=== PATIENT | male | born 1960 | race Caucasian/White ===

== ENCOUNTER 2021-12-08 17:34 | Inpatient (IN) ==
--- NOTE | 2021-12-08 17:39 | ED Triage Note ---
Date of Service December 08, 2021 History of Present Illness This patient was briefly evaluated while in triage. An abbreviated physical exam was performed. This patient is a 61-year-old Male with past medical history of heart disease who presents to the ED for evaluation of "gallbladder". Pt's family member states "I think he's having an attack." He reportedly had CT and US completed yesterday at [facility] and has gallstones and gallbladder inflammation. Having dry heaves. Physical Exam VITALS: Vitals are noted on the nurse's note and reviewed by myself. GENERAL: This is a 61 year old male, in no acute distress, nondiaphoretic, well-developed well-nourished. SKIN: No obvious rashes, edema, erythema HEAD: Normocephalic atraumatic. EYES: Conjunctivae without injection, sclerae without icterus. NECK: No JVD. LUNGS: No retractions or accessory muscle use. MUSCULOSKELETAL: Normal gait. NEURO: Patient was alert and oriented to person place and time. No focal neurological deficits. Initial orders for labs and / or imaging were placed and patient was placed in the waiting area until a bed is available. Please see further documentation for the full ED course. MDM / Impression Impression Impression: Upper abdominal pain, Total bilirubin, elevated, Elevated troponin I level, Chest pain, History of coronary artery disease, History of heart failure, History of atrial fibrillation, Hyponatremia
[2021-12-08 19:33] LABS: Hematocrit (blood only) 42.4 % (40.1-51.0); Hemoglobin 14.5 g/dl (14.0-18.0); Mean Corpuscular Hemoglobin 31.8 pg (25.0-34.0); Mean Corpuscular Hgb Conc 34.2 g/dL (32.0-36.0); RDW Standard Deviation 44.5 fL (36.4-46.3); Red Blood Count 4.56 M/uL (4.63-6.08); White Blood Count 7.75 K/ul (4.8-10.8)
[2021-12-08 19:47] LABS: Basophils # (auto) 0.08 K/uL (0-0.2); Eosinophils # (auto) 0.05 K/uL (0-0.50); Eosinophils % (auto) 0.6 %; Immature Granulocytes # (auto) 0.02 K/uL (0.00-0.02); Immature Granulocytes % (auto) 0.3 %; Lymphocytes # (auto) 1.29 K/uL (1.2-3.4); Lymphocytes % (auto) 16.6 %; Mean Platelet Volume 13.1 fL (9.4-12.4); Monocytes # (auto) 0.59 K/uL (0.24-0.82); Monocytes % (auto) 7.6 %; Neutrophils # (auto) 5.72 K/uL (1.4-6.5); Neutrophils % (auto) 73.9 %; Platelet Count 216 K/uL (130-400)
[2021-12-08] MEDS ORDERED: fentaNYL citrate 100 MCG/2 ML VIAL IV STA ×2 (19:56→21:35)
[2021-12-08] MEDS ORDERED: ONDANSETRON INJ 2 MG/ML 2 ML VIAL IV STA ×2 (19:56→21:35)
--- NOTE | 2021-12-08 19:57 | Emergency Department Note ---
Impression & Plan Upper abdominal pain, Total bilirubin, elevated, Elevated troponin I level, Chest pain, History of coronary artery disease, History of heart failure, History of atrial fibrillation, Hyponatremia ED Provider Note Provider: Mehul Ruffin MD DATE OF SERVICE: 12/08/2021 CHIEF COMPLAINT: Abdominal pain, chest pressure HISTORY OF PRESENT ILLNESS: Patient is a 61-year-old gentleman history of atrial fibrillation, CHF, AICD placement, hepatitis C, and CABG presenting here today reporting over the past 3 to 4 weeks developing fairly regular upper to right upper back abdominal discomfort. Reports significant nausea at times. Some constipation. Has been losing weight. Seen at [facility] yesterday and had an ultrasound and CAT scan reportedly showed some gallstones and may be some inflammation but referred to outpatient PCP. Worsened pain symptoms so came here today. Has been using Eliquis for anticoagulation. Denies significant leg swelling. No history of abdominal surgeries. REVIEW OF SYSTEMS: A total of 10 review of systems was obtained and negative except as stated above in the HPI. PAST MEDICAL HISTORY: As noted above MEDICATIONS: Reviewed home medications include Lasix and Eliquis (last dose of Eliquis this morning) SOCIAL HISTORY: Works at the [employer] in [place] PHYSICAL EXAM: GENERAL: alert and oriented seated on stretcher Head: normocephalic and atraumatic EYES: No injection, discharge or icterus. NECK: Trachea midline. ENT: Mucous membranes pink and moist. LUNGS: Airway patent. No retractions. Breath sounds clear with good air entry bilaterally. HEART: Irregular, mildly tachycardic rate and rhythm. No chest wall tenderness ABDOMEN: Soft minimal upper abdominal tenderness. No guarding. SKIN: Acyanotic, warm, dry, without rashes EXTREMITIES: Without swelling or tenderness with [id number] surgical scars. NEUROLOGICAL: No focal deficits. No aphasia. No facial droop or slurred speech. Ambulatory. EK bpm sinus rhythm with frequent PVCs and a left bundle branch block. Left axis. QTC 549. CONTINUOUS CARDIAC MONITORING: was ordered and showed a heart rate of 90s-100s bpm in normal sinus rhythm with frequent PVCs Patient's laboratory studies and imaging reviewed. Differential includes Appendicitis, infections, diverticulitis, UTI, obstruction, mesenteric ischemia, aortic pathology, inflammatory bowel disease, renal colic, PUD, pancreatitis, biliary pathology, hernia, volvulus, constipation, as well as other pathologies. IMPRESSION/MEDICAL DECISION MAKING: Patient with some intermittent significant symptoms over the past 3 to 4 weeks. Patient some imaging yesterday at [facility]. Significant cardiac history reported. Troponin somewhat elevated here and reportedly he may have some chronic elevation. Reports some intermittent chest pressure. EKG obtained. Blood work without significant leukocytosis. No anemia. Mild hyponatremia. Creatinine 1.82 as well as an elevated bilirubin of 2.4 noted. Attempted to get outside labs from [facility]. Did have a CT scan of the abdomen pelvis yesterday and do not know that additional CT today would be beneficial. Given some Zofran and fentanyl here for pain and nausea complaints initially. Some improvement of pain. Discussed with general surgery team findings and they will follow him in the morning. Given some gentle IV hydration here but 1 to be careful avoid fluid overload given his heart failure history. Discussed further observation here given his abdominal discomfort and symptoms as well as his elevated troponin for further work-up. Did finally receive outside records indicate the patient had a CT of his chest as well as a CT abdomen pelvis yesterday at [facility] and by the reports no PE but question of pulmonary hypertension as well as gallbladder wall thickening and mild pericholecystic fluid. Patient signed out AMA from there. Blood work there yesterday reports a D-dimer 1000, BNP of 1970, troponin 54, creatinine 1.7, white blood cell count of 8.0, troponin of 54, lipase of 128, sodium of 133, and total bilirubin of 1.6. His bilirubin of 2.4 is higher today although his creatinine appears similar and the high sensitive troponin is somewhat elevated today but unsure if they correspond or correlate well with the outside lab. DIAGNOSIS: Abdominal pain, nausea, elevated troponin, chest pain, hyponatremia, hypomag nesemia DISPOSITION: Hospitalist will evaluate Patient was agreeable with this plan and was agreeable to stay at this time. Past Med/Surg History Social History Smoking Status: Former smoker Feels Safe at Home: Yes Allergies Allergies Allergy/AdvReac Type Severity Reaction Status Date / Time codeine Allergy Severe chest Verified 12/08/21 22:08 pain,cold sweats Home Meds Home Medications Medication Instructions Recorded Confirmed apixaban 5 mg tablet (Eliquis) 5 mg PO DAILY 12/08/21 12/08/21 furosemide 40 mg tablet 80 mg PO QPM 12/08/21 12/08/21 isosorbide mononitrate 60 mg 60 mg PO QAM 12/08/21 12/08/21 tablet,extended release 24 hr metoprolol succinate 200 mg 200 mg PO DAILY 12/08/21 12/08/21 tablet,extended release 24 hr sacubitril 49 mg-valsartan 51 mg 1 tab PO DAILY 12/08/21 12/08/21 tablet (Entresto) spironolactone 25 mg tablet 25 mg PO DAILY 12/08/21 12/08/21 Results & Data (ED) Vital Signs Vital Signs - 24 hr 12/08/21 17:38 12/08/21 21:00 12/08/21 21:10 Temperature 36.2 C L Temperature Source Temporal Artery Scan Pulse Rate 110 H 98 H 96 H Pulse Rate from SpO2 Sensor 101 H 93 H Pulse Rhythm Respiratory Rate 16 36 H 23 Respiratory Effort / Characteristics Non-Labored Spontaneous Respiratory Depth Normal Respiratory Pattern Regular Blood Pressure 127/83 Blood Pressure Mean 97 Pulse Oximetry 96 96 96 Oxygen Delivery Method Room Air Sepsis Recent Fever Within 48 Hours No Sepsis New/Unexplained Change in Mental Status N/A Sepsis Action Taken by Nursing No Action Required 12/08/21 21:20 12/08/21 21:24 12/08/21 21:24 Temperature Temperature Source Pulse Rate 97 H 94 H Pulse Rate from SpO2 Sensor 98 H 116 H Pulse Rhythm Respiratory Rate 23 29 H Respiratory Effort / Characteristics Respiratory Depth Respiratory Pattern Blood Pressure 120/83 Blood Pressure Mean 95 Pulse Oximetry 98 96 Oxygen Delivery Method Sepsis Recent Fever Within 48 Hours Sepsis New/Unexplained Change in Mental Status Sepsis Action Taken by Nursing 12/08/21 21:35 12/08/21 21:35 12/08/21 21:30 Temperature Temperature Source Pulse Rate 87 Pulse Rate from SpO2 Sensor Pulse Rhythm Regular Respiratory Rate 16 Respiratory Effort / Characteristics Respiratory Depth Respiratory Pattern Blood Pressure 120/92 Blood Pressure Mean 101 Pulse Oximetry 93 Oxygen Delivery Method Room Air Room Air Sepsis Recent Fever Within 48 Hours Sepsis New/Unexplained Change in Mental Status Sepsis Action Taken by Nursing 12/08/21 21:30 12/08/21 21:40 12/08/21 21:50 Temperature Temperature Source Pulse Rate 99 H 98 H 97 H Pulse Rate from SpO2 Sensor 89 105 H 98 H Pulse Rhythm Respiratory Rate 38 H 32 H 23 Respiratory Effort / Characteristics Respiratory Depth Respiratory Pattern Blood Pressure Blood Pressure Mean Pulse Oximetry 97 97 98 Oxygen Delivery Method Sepsis Recent Fever Within 48 Hours Sepsis New/Unexplained Change in Mental Status Sepsis Action Taken by Nursing 12/08/21 22:00 12/08/21 22:00 12/08/21 22:10 Temperature Temperature Source Pulse Rate 96 H 92 H Pulse Rate from SpO2 Sensor 95 H 92 H Pulse Rhythm Respiratory Rate 36 H 22 Respiratory Effort / Characteristics Respiratory Depth Respiratory Pattern Blood Pressure 123/92 Blood Pressure Mean 102 Pulse Oximetry 95 94 Oxygen Delivery Method Sepsis Recent Fever Within 48 Hours Sepsis New/Unexplained Change in Mental Status Sepsis Action Taken by Nursing 12/08/21 22:20 Temperature Temperature Source Pulse Rate 89 Pulse Rate from SpO2 Sensor 88 Pulse Rhythm Respiratory Rate 21 Respiratory Effort / Characteristics Respiratory Depth Respiratory Pattern Blood Pressure Blood Pressure Mean Pulse Oximetry 94 Oxygen Delivery Method Sepsis Recent Fever Within 48 Hours Sepsis New/Unexplained Change in Mental Status Sepsis Action Taken by Nursing Laboratory Data Result diagrams: 12/08/21 19:15 12/08/21 19:15 Lab Results 12/08/21 12/08/21 12/08/21 Range/Units 19:15 19:15 19:15 WBC 7.75 (4.8-10.8) K/ul RBC 4.56 L (4.63-6.08) M/uL Hgb 14.5 (14.0-18.0) g/dl Hct 42.4 (40.1-51.0) % MCV 93.0 (80.0-100.0) fL MCH 31.8 (25.0-34.0) pg MCHC 34.2 (32.0-36.0) g/dL RDW Std Deviation 44.5 (36.4-46.3) fL RDW Coeff of Ijeoma 13.0 (11.5-14.5) % Plt Count 216 (130-400) K/uL MPV 13.1 H (9.4-12.4) fL Immature Gran % (Auto) 0.3 % Neut % (Auto) 73.9 % Lymph % (Auto) 16.6 % Teller % (Auto) 7.6 % Eos % (Auto) 0.6 % Baso % (Auto) 1.0 % Neut # (Auto) 5.72 (1.4-6.5) K/uL Lymph # (Auto) 1.29 (1.2-3.4) K/uL Teller # (Auto) 0.59 (0.24-0.82) K/uL Eos # (Auto) 0.05 (0-0.50) K/uL Baso # (Auto) 0.08 (0-0.2) K/uL Immature Gran # (Auto) 0.02 (0.00-0.02) K/uL PT Cancelled INR Cancelled Sodium 131 L (136-145) mmol/L Potassium TNP Chloride 91 L (98-107) mmol/L Carbon Dioxide 24 (21-32) mmol/L Anion Gap 16 H (3-11) BUN 22 (6-23) mg/dl Creatinine 1.82 H (0.6-1.4) mg/dl Est Cr Clr Drug Dosing Not Reportable Est GFR ( Amer) 44.8 ml/min Est GFR (Non-Af Amer) 38.7 ml/min BUN/Creatinine Ratio 12.1 (10-20) Glucose 115 H (70-99(Fasting)) mg/dl Calcium 9.7 (8.5-10.1) mg/dl Magnesium (1.7-2.4) mg/dl Total Bilirubin 2.4 H (0.2-1.0) mg/dl AST TNP ALT 25 (7-52) U/L Alkaline Phosphatase 82 (34-104) U/L Troponin I High Sens 62.1 H* (0-20) pg/ml Total Protein 7.8 (6.0-8.3) gm/dl Albumin 4.3 (3.4-5.0) gm/dl Globulin 3.5 (2.5-4.0) gm/dl Albumin/Globulin Ratio 1.2 (0.9-2) Lipase 28 (11-82) U/L 12/08/21 12/08/21 Range/Units 20:56 20:56 WBC (4.8-10.8) K/ul RBC (4.63-6.08) M/uL Hgb (14.0-18.0) g/dl Hct (40.1-51.0) % MCV (80.0-100.0) fL MCH (25.0-34.0) pg MCHC (32.0-36.0) g/dL RDW Std Deviation (36.4-46.3) fL RDW Coeff of Ijeoma (11.5-14.5) % Plt Count (130-400) K/uL MPV (9.4-12.4) fL Immature Gran % (Auto) % Neut % (Auto) % Lymph % (Auto) % Teller % (Auto) % Eos % (Auto) % Baso % (Auto) % Neut # (Auto) (1.4-6.5) K/uL Lymph # (Auto) (1.2-3.4) K/uL Teller # (Auto) (0.24-0.82) K/uL Eos # (Auto) (0-0.50) K/uL Baso # (Auto) (0-0.2) K/uL Immature Gran # (Auto) (0.00-0.02) K/uL PT 14.5 H INR 1.4 H Sodium (136-145) mmol/L Potassium Chloride (98-107) mmol/L Carbon Dioxide (21-32) mmol/L Anion Gap (3-11) BUN (6-23) mg/dl Creatinine (0.6-1.4) mg/dl Est Cr Clr Drug Dosing Est GFR ( Amer) ml/min Est GFR (Non-Af Amer) ml/min BUN/Creatinine Ratio (10-20) Glucose (70-99(Fasting)) mg/dl Calcium (8.5-10.1) mg/dl Magnesium 1.5 L (1.7-2.4) mg/dl Total Bilirubin (0.2-1.0) mg/dl AST ALT (7-52) U/L Alkaline Phosphatase (34-104) U/L Troponin I High Sens (0-20) pg/ml Total Protein (6.0-8.3) gm/dl Albumin (3.4-5.0) gm/dl Globulin (2.5-4.0) gm/dl Albumin/Globulin Ratio (0.9-2) Lipase (11-82) U/L Administered Medications Magnesium Sulfate/Dextrose (Magnesium Sulfate / D5w) 1 gm in 100 mls @ 200 mls/hr IV Q30M JOSHUA Stop: 12/08/21 23:14 Last Admin: 12/08/21 22:31 Dose: 200 mls/hr Documented By: YAW Discontinued Medications Fentanyl Citrate (Fentanyl Citrate 100 Mcg/2 Ml Vial) 50 mcg IV NOW STA Stop: 12/08/21 19:57 Last Admin: 12/08/21 20:49 Dose: 50 mcg Documented By: YAW Fentanyl Citrate (Fentanyl Citrate 100 Mcg/2 Ml Vial) 50 mcg IV NOW STA Stop: 12/08/21 21:36 Last Admin: 12/08/21 21:54 Dose: 50 mcg Documented By: YAW Sodium Chloride (Nss 1000ml) 250 mls @ 999 mls/hr IV .Q16M ONE Stop: 12/08/21 21:50 Last Infusion: 12/08/21 22:18 Dose: 0 mls/hr Documented By: Admin: 12/08/21 21:55 Dose: 999 mls/hr Documented By: YAW Ondansetron HCl (Ondansetron Inj 2 Mg/Ml 2 Ml Vial) 4 mg IV NOW STA Stop: 12/08/21 19:57 Last Admin: 12/08/21 20:44 Dose: 4 mg Documented By: YAW Ondansetron HCl (Ondansetron Inj 2 Mg/Ml 2 Ml Vial) 4 mg IV NOW STA Stop: 12/08/21 21:36 Last Admin: 12/08/21 21:54 Dose: 4 mg Documented By: YAW Imaging Data Radiologist's Impression: Gallbladder Ultrasound 12/08/21 17:39 US gallbladder CLINICAL HISTORY: Abdominal pain, dry heaves,gallstones, GB inflamed TECHNIQUE: Multiple real-time sonographic images of the right upper quadrant were obtained. Comparison: None available at the time of this dictation. FINDINGS: The liver is diffusely coarsened in echotexture, with a nodular contour. The liver appears shrunken in appearance. These findings are suggestive of cirrhosis. The liver masses definitely seen. The main portal vein is hepatopedal but demonstrate slow flow. No intrahepatic ductal dilatation is seen. Gallstones are seen and there is mild wall thickening, the gallbladder wall measures approximately 4 mm. No pericholecystic fluid is seen. A sonographic Harris's sign was not elicited by the dye box operator. The common duct measures 0.3 cm in diameter at the level of the hepatic artery. The pancreas is not well visualized secondary to overlying bowel gas. The right kidney shows normal echogenicity, cortical thickness and renal contour. The right kidney shows no evidence of hydronephrosis or mass. No ascites or free fluid is seen in Vazquez's pouch. IMPRESSION: 1. Gallstones and mild gallbladder wall thickening without pericholecystic fluid or Harris's sign. Findings are equivocal for cholecystitis. If there is clinical concern, nuclear medicine HIDA scan can be performed. 2. Cirrhosis. ACT 112: Negative or not required by law. Electronically signed by: Gregg Wilson M.D. 12/08/2021 9:00 PM Discharge Plan Visit Data Chief Complaint: Abdominal Pain Stated Complaint: GALLBLADDER ATTACK, DRY HEAVING, NAUSEATED ED Provider: Mehul Ruffin Discharge Problem: Upper abdominal pain, Total bilirubin, elevated, Elevated troponin I level, Chest pain, History of coronary artery disease, History of heart failure, History of atrial fibrillation, Hyponatremia Patient Disposition: Being Evaluated by Hospitalist Forms Stand Alone Forms: My [facility] Prescriptions Prescriptions: No Action furosemide 40 mg tablet 80 mg PO QPM metoprolol succinate 200 mg tablet extended release 24 hr 200 mg PO DAILY spironolactone 25 mg tablet 25 mg PO DAILY isosorbide mononitrate 60 mg tablet extended release 24 hr 60 mg PO QAM Eliquis 5 mg tablet 5 mg PO DAILY Entresto 49-51 mg tablet 1 tab PO DAILY Referrals Referrals: PCP,NO [Physician] -
[2021-12-08 20:06] LABS: Alanine Aminotransferase 25 U/L (7-52); Albumin Globulin Ratio 1.2 (0.9-2); Albumin Level 4.3 gm/dl (3.4-5.0); Alkaline Phosphatase 82 U/L (34-104); Anion Gap 16 (3-11); BUN Creatinine Ratio 12.1 (10-20); Bilirubin,Total 2.4 mg/dl (0.2-1.0); Blood Urea Nitrogen 22 mg/dl (6-23); Calcium 9.7 mg/dl (8.5-10.1); Carbon Dioxide 24 mmol/L (21-32); Chloride 91 mmol/L (98-107); Est GFR (African American) 44.8 ml/min; Est GFR (Non-African American) 38.7 ml/min; Globulin 3.5 gm/dl (2.5-4.0); Glucose 115 mg/dl (70-99(Fasting)); Lipase 28 U/L (11-82); Sodium 131 mmol/L (136-145); Total Protein 7.8 gm/dl (6.0-8.3); Troponin I High Sensitivity 62.1 pg/ml (0-20)
--- NOTE | 2021-12-08 21:02 | Ultrasound Report ---
US gallbladder CLINICAL HISTORY: Abdominal pain, dry heaves,gallstones, GB inflamed TECHNIQUE: Multiple real-time sonographic images of the right upper quadrant were obtained. Comparison: None available at the time of this dictation. FINDINGS: The liver is diffusely coarsened in echotexture, with a nodular contour. The liver appears shrunken i n appearance. These findings are suggestive of cirrhosis. The liver masses definitely seen. The main portal vein is hepatopedal but demonstrate slow flow. No intrahepatic ductal dilatation is seen. G allstones are seen and there is mild wall thickening, the gallbladder wall measures approximately 4 m m. No pericholecystic fluid is seen. A sonographic Harris's sign was not elicited by the medical research tech. The common duct measures 0.3 cm in diameter at the level of the hepatic artery. The pancreas is n ot well visualized secondary to overlying bowel gas. The right kidney shows normal echogenicity, cortical thickness and renal contour. The right kidney sh ows no evidence of hydronephrosis or mass. No ascites or free fluid is seen in Vazquez's pouch. IMPRESSION: 1. Gallstones and mild gallbladder wall thickening without pericholecystic fluid or Harris's sign. F indings are equivocal for cholecystitis. If there is clinical concern, nuclear medicine HIDA scan can be performed. 2. Cirrhosis. ACT 112: Negative or not required by law. Electronically signed by: Gregg Wilson M.D. 12/08/2021 9:00 PM
[2021-12-08 21:22] LABS: INR 1.4 (0.9-1.1); Prothrombin Time 14.5 Seconds (9.0-12.0)
[2021-12-08] MEDS ORDERED: SODIUM CHLORIDE 0.9% 1000ML 250 ML IV ONE (21:35)
[2021-12-08] MEDS: MAGNESIUM SULFATE / D5W 1 GM/100 ML BAG IV SCH ×2 (22:31→23:05)
--- NOTE | 2021-12-08 23:18 | History & Physical Report ---
Date of Service December 08, 2021 Assessment & Plan (1) RUQ pain: Plan: 61 yo male with PMHx of afib on eliquis, CHF, AICD in place, hep C, CABG, CAD, LOCKE presents with RUQ pain. 4 weeks ago he started having right upper quadrant pain which has progressively gotten worse. RUQ pain H/o LOCKE -4 weeks progressively worsening pain with associated loss of appetite, nausea, chest pain, SOB. Afebrile. No leukocytosis. FHx cholecystectomy. Left AMA from [facility] yesterday, findings questionable for cholecystitis. -RUQ US: Gallstones and mild gallbladder wall thickening without pericholecystic fluid or Harris's sign. Cirrhosis of liver. -Gen surg consulted: will see patient in am -Consider nuclear medicine HIDA -started on rocephin, flagyl for empiric coverage -received 1L NSS in ED, hold maintenance fluids for now, some concern for CHF exacerbation as below -zofran for nausea, tylenol for pain; received fentanyl in ED -NPO for now Chest pain Elevated Troponin CAD, h/o CABG h/o CHF -4 weeks of chest pain with SOB; trops elevated yesterday at [place] (50s), elevated on admission here in 60s -EKG shows ST depressions; unclear if due to ACS or demand ischemia secondary to CHF exacerbation -trend trops -CXR pending -Echo ordered -consider cardio consult; follows with [facility]ology -NPO- hold home mononitrate, metoprolol, Entresto, spironolactone, Lasix ?[facility] Elevated creatinine -Cr 1.8 on admission; 1.7 at [place] yesterday; baseline unknown -possible fluid overloaded due to CHF exacerbation -1L NSS received in ED, hold fluids for now, recheck Cr in am -CXR pending -home meds held as above Afib AICD in place -hold home Eliquis, metoprolol; HR appropriate -started on heparin -will need to hold anticoagulation if plan for cholecystectomy DVT ppx: Heparin FEN/GI: NPO, hold meds until seen by surgery Code Status: full Dispo: PCU tele (2) Total bilirubin, elevated: (3) Elevated troponin I level: (4) Chest pain: (5) History of coronary artery disease: (6) History of heart failure: (7) History of atrial fibrillation: (8) Hyponatremia: History of Present Illness Chief Complaint: RUQ pain Primary Care Provider: Jong Palomaslime 61 yo male with PMHx of afib on eliquis, CHF, AICD in place, hep C, CABG, CAD, LOCKE presents with RUQ pain. 4 weeks ago he started having right upper quadrant pain which has progressively gotten worse. He has had associated nausea, chest pain, shortness of breath at rest/exertion, headaches, fatigue, urinary retention. Denies fevers, vomiting. He has not had much of an appetite and many of his meals have been limited to toast and water. Due to his pain patient has only been taking some of his meds over the last few weeks which includes his Eliquis, Lasix, Entresto. Has not been taking his mononitrate, metoprolol, spironolactone. States he stays well-hydrated drinking about 80 ounces of water a day. Last bowel movement was 2 weeks ago with the help of bowel prep. Denies tobacco or recreational drug use. Alcohol use is about 2 beers a week. His mother and daughter have had their gallbladders removed due to gallstones. Of note he presented to [facility] yesterday for initial evaluation. Per ED note, we received outside records indicate the patient had a CT of his chest as well as a CT abdomen pelvis yesterday at [facility] and by the reports no PE but question of pulmonary hypertension as well as gallbladder wall thickening and mild pericholecystic fluid.Patient signed out AMA from there.Blood work there yesterday reports a D-dimer 1000, BNP of 1970, troponin 54, creatinine 1.7, white blood cell count of 8.0, troponin of 54, lipase of 128, sodium of 133, and total bilirubin of 1.6. Allergies Allergy/AdvReac Type Severity Reaction Status Date / Time codeine Allergy Severe chest Verified 12/08/21 22:08 pain,cold sweats Home Medications Medication Instructions Recorded Confirmed Type apixaban 5 mg tablet (Eliquis) 5 mg PO DAILY 12/08/21 12/08/21 History furosemide 40 mg tablet 80 mg PO QPM 12/08/21 12/08/21 History isosorbide mononitrate 60 mg 60 mg PO QAM 12/08/21 12/08/21 History tablet,extended release 24 hr metoprolol succinate 200 mg 200 mg PO DAILY 12/08/21 12/08/21 History tablet,extended release 24 hr sacubitril 49 mg-valsartan 51 mg 1 tab PO DAILY 12/08/21 12/08/21 History tablet (Entresto) spironolactone 25 mg tablet 25 mg PO DAILY 12/08/21 12/08/21 History Past Med/Surg History Medical History (Updated 12/09/21 @ 22:51 by Trent Chakraborty) Total bilirubin, elevated Upper abdominal pain Social History Smoking Status: Never smoker Hx Alcohol Use: Yes Hx Substance Use: No Preferred Language: Gambian Communication Ability: Effective Wax Pattern Coater Required: No Beliefs That Will Affect Care: None marital status: / Current Living Situation: Alone Feels Safe at Home: Yes Safety Concerns: Feels Safe At This Time Assistive Devices: None Review of Systems Review of Systems: All systems reviewed & are unremarkable except as noted in HPI & below Physical Exam Physical Exam: Constitutional: in no acute distress, pleasant, intact memory. Vitals as above. HEENT: No scleral injection or discharge.Moist mucous membranes.Clear oropharynx without exudate. Neck: Supple without lymphadenopathy or thyromegaly. Trachea midline. Lungs: Diffuse rales. No wheezing or rhonchi. Breathing comfortably at rest with no accessory muscle use. Cardiac: Regular rate and rhythm. No murmurs.Trace LE edema bilaterally. 2+ peripheral pulses. No JVD. Abdomen: +BS. Soft and nondistended.Tender LLQ to palpation. Minimally tender RUQ, neg murphys. No guarding or rebound tenderness.No hepatosplenomegaly. MSK: No cyanosis or clubbing. Extremities motor strength 5/5. Skin: No rashes, warm, dry. Neurologic: No focal deficits. PERRL. Results & Data Results & Data ([facility]) Vital Signs (Past 12 Hours) Vital Signs Temp Pulse Resp BP Pulse Ox O2 Del Method 12/08/21 22:20 89 21 94 12/08/21 22:10 92 H 22 94 12/08/21 22:00 96 H 36 H 95 12/08/21 22:00 123/92 12/08/21 21:50 97 H 23 98 12/08/21 21:40 98 H 32 H 97 12/08/21 21:30 99 H 38 H 97 12/08/21 21:30 120/92 12/08/21 21:35 Room Air 12/08/21 21:35 87 16 93 Room Air 12/08/21 21:24 94 H 29 H 96 12/08/21 21:24 120/83 12/08/21 21:20 97 H 23 98 12/08/21 21:10 96 H 23 96 12/08/21 21:00 98 H 36 H 96 12/08/21 17:38 36.2 C L 110 H 16 127/83 96 Room Air Laboratory Results Laboratory Results WBC 7.75 K/ul (4.8-10.8) 12/08/21 19:15 RBC 4.56 M/uL (4.63-6.08) L 12/08/21 19:15 Hgb 14.5 g/dl (14.0-18.0) 12/08/21 19:15 Hct 42.4 % (40.1-51.0) 12/08/21 19:15 MCV 93.0 fL (80.0-100.0) 12/08/21 19:15 MCH 31.8 pg (25.0-34.0) 12/08/21 19:15 MCHC 34.2 g/dL (32.0-36.0) 12/08/21 19:15 RDW Std Deviation 44.5 fL (36.4-46.3) 12/08/21 19:15 RDW Coeff of Ije[place] 13.0 % (11.5-14.5) 12/08/21 19:15 Plt Count 216 K/uL (130-400) 12/08/21 19:15 MPV 13.1 fL (9.4-12.4) H 12/08/21 19:15 Immature Gran % (Auto) 0.3 % 12/08/21 19:15 Neut % (Auto) 73.9 % 12/08/21 19:15 Lymph % (Auto) 16.6 % 12/08/21 19:15 [place] % (Auto) 7.6 % 12/08/21 19:15 Eos % (Auto) 0.6 % 12/08/21 19:15 Baso % (Auto) 1.0 % 12/08/21 19:15 Neut # (Auto) 5.72 K/uL (1.4-6.5) 12/08/21 19:15 Lymph # (Auto) 1.29 K/uL (1.2-3.4) 12/08/21 19:15 [place] # (Auto) 0.59 K/uL (0.24-0.82) 12/08/21 19:15 Eos # (Auto) 0.05 K/uL (0-0.50) 12/08/21 19:15 Baso # (Auto) 0.08 K/uL (0-0.2) 12/08/21 19:15 Immature Gran # (Auto) 0.02 K/uL (0.00-0.02) 12/08/21 19:15 PT 14.5 Seconds (9.0-12.0) H 12/08/21 20:56 INR 1.4 (0.9-1.1) H 12/08/21 20:56 Sodium 131 mmol/L (136-145) L 12/08/21 19:15 Potassium TNP 12/08/21 19:15 Chloride 91 mmol/L (98-107) L 12/08/21 19:15 Carbon Dioxide 24 mmol/L (21-32) 12/08/21 19:15 Anion Gap 16 (3-11) H 12/08/21 19:15 BUN 22 mg/dl (6-23) 12/08/21 19:15 Creatinine 1.82 mg/dl (0.6-1.4) H 12/08/21 19:15 Est Cr Clr Drug Dosing Not Reportable 12/08/21 19:15 Est GFR ( Amer) 44.8 ml/min 12/08/21 19:15 Est GFR (Non-Af Amer) 38.7 ml/min 12/08/21 19:15 BUN/Creatinine Ratio 12.1 (10-20) 12/08/21 19:15 Glucose 115 mg/dl (70-99(Fasting)) H 12/08/21 19:15 Calcium 9.7 mg/dl (8.5-10.1) 12/08/21 19:15 Magnesium 1.5 mg/dl (1.7-2.4) L 12/08/21 20:56 Total Bilirubin 2.4 mg/dl (0.2-1.0) H 12/08/21 19:15 AST TNP 12/08/21 19:15 ALT 25 U/L (7-52) 12/08/21 19:15 Alkaline Phosphatase 82 U/L (34-104) 12/08/21 19:15 Troponin I High Sens 62.1 pg/ml (0-20) H* 12/08/21 19:15 Total Protein 7.8 gm/dl (6.0-8.3) 12/08/21 19:15 Albumin 4.3 gm/dl (3.4-5.0) 12/08/21 19:15 Globulin 3.5 gm/dl (2.5-4.0) 12/08/21 19:15 Albumin/Globulin Ratio 1.2 (0.9-2) 12/08/21 19:15 Lipase 28 U/L (11-82) 12/08/21 19:15 SARS-CoV-2, RNA, NAAT NEGATIVE (NEGATIVE) 12/08/21 21:35 Impressions Gallbladder Ultrasound 12/08/21 17:39 US gallbladder CLINICAL HISTORY: Abdominal pain, dry heaves,gallstones, GB inflamed TECHNIQUE: Multiple real-time sonographic images of the right upper quadrant were obtained. Comparison: None available at the time of this dictation. FINDINGS: The liver is diffusely coarsened in echotexture, with a nodular contour. The liver appears shrunken in appearance. These findings are suggestive of cirrhosis. The liver masses definitely seen. The main portal vein is hepatopedal but demonstrate slow flow. No intrahepatic ductal dilatation is seen. Gallstones are seen and there is mild wall thickening, the gallbladder wall measures approximately 4 mm. No pericholecystic fluid is seen. A sonographic Harris's sign was not elicited by the portal developer. The common duct measures 0.3 cm in diameter at the level of the hepatic artery. The pancreas is not well visualized secondary to overlying bowel gas. The right kidney shows normal echogenicity, cortical thickness and renal contour. The right kidney shows no evidence of hydronephrosis or mass. No ascites or free fluid is seen in Vazquez's pouch. IMPRESSION: 1. Gallstones and mild gallbladder wall thickening without pericholecystic fluid or Harris's sign. Findings are equivocal for cholecystitis. If there is clinical concern, nuclear medicine HIDA scan can be performed. 2. Cirrhosis. ACT 112: Negative or not required by law. Electronically signed by: Gregg Wilson M.D. 12/08/2021 9:00 PM Supervising Physician Co-Signing Physician Notes Attending addendum: I have physically seen this patient, have supervised the medical residents activities, and agree with the H&P unless as otherwise noted. Assessment and Plan: Elevated troponin/ischemic cardiomyopathy/ICD presents/chronic systolic CHF/CAD/atrial fibrillation- The patient will be admitted to telemetry for serial cardiac enzymes, serial EKG's, cardiac rhythm monitoring and a 2-D echocardiogram with Dopplers. Troponin 63.1 on admission, was noted to be 50 at [facility] yesterday EKG with nonspecific ST T changes Hold Eliquis Start heparin drip Consult cardiology, reportedly follows with cardiology at [place] Right upper quadrant abdominal pain/nausea/epigastric pain- History of LOCKE/liver cirrhosis Right upper quadrant ultrasound with gallstones and mild gallbladder wall thickening without pericholecystic fluid or Harris sign. General surgery consulted regarding possibility of cholecystitis and will follow Order nuclear medicine HIDA scan Empiric ceftriaxone and Flagyl IV IV fluids as noted Zofran 4 mg IV every 6 hours as needed Renal insufficiency- Creatinine 1.8 today, noted to be 1.7 at [place] yesterday, with no previous baseline Status post 1 L normal saline in ED Repeat laboratories in a.m. Remaining orders and notations as noted Resident Activity Tracking Resident Involvement: Resident Care Provided Care Provided: Adult Hospital Medicine
[2021-12-09] MEDS ORDERED: ONDANSETRON INJ 2 MG/ML 2 ML VIAL IV PRN (01:02)
[2021-12-09] MEDS ORDERED: ACETAMINOPHEN 1000 MG/100 ML IV IV PRN (01:02)
[2021-12-09] MEDS ORDERED: NITROGLYCERIN SL 0.4 MG/TAB TAB SL PRN (01:02)
[2021-12-09] MEDS: metroNIDAZOLE 500 MG/100 ML BAG IV SCH ×3 (01:42→17:28)
[2021-12-09] MEDS: cefTRIAXone SODIUM 2,000 MG/70 ML BAG IV SCH (01:42)
[2021-12-09 03:09] LABS: Potassium 3.2 mmol/L (3.5-5.1)
[2021-12-09 03:16] LABS: Appearance Urine Clear (Clear); Bacteria Urine Automated Negative (Negative); Bilirubin Urine Negative (Negative); Blood Urine Negative (Negative); Color Urine Dark Yellow; Glucose Urine UA Negative (Negative); Ketones Urine Negative (Negative); Leukocyte Esterase Urine Negative (Negative); Nitrite Urine Negative (Negative); Protein Urine 1+ (Negative); RBC Urine Automated 0-4 /hpf (0-4); Urobilinogen Urine Negative (Negative); pH Urine 5.5 (4.5-7.5)
[2021-12-09 06:11] LABS: Basophils # (auto) 0.06 K/uL (0-0.2); Basophils % (auto) 1.1 %; Eosinophils # (auto) 0.12 K/uL (0-0.50); Eosinophils % (auto) 2.2 %; Hematocrit (blood only) 38.3 % (40.1-51.0); Hemoglobin 13.1 g/dl (14.0-18.0); Immature Granulocytes # (auto) 0.02 K/uL (0.00-0.02); Immature Granulocytes % (auto) 0.4 %; Lymphocytes # (auto) 1.43 K/uL (1.2-3.4); Lymphocytes % (auto) 26.3 %; Mean Corpuscular Hemoglobin 31.6 pg (25.0-34.0); Mean Corpuscular Hgb Conc 34.2 g/dL (32.0-36.0); Mean Corpuscular Volume 92.5 fL (80.0-100.0); Mean Platelet Volume 12.3 fL (9.4-12.4); Monocytes # (auto) 0.53 K/uL (0.24-0.82); Monocytes % (auto) 9.7 %; Neutrophils # (auto) 3.28 K/uL (1.4-6.5); Neutrophils % (auto) 60.3 %; Platelet Count 172 K/uL (130-400); RDW Coefficient of Variation 12.9 % (11.5-14.5); RDW Standard Deviation 43.5 fL (36.4-46.3); Red Blood Count 4.14 M/uL (4.63-6.08); White Blood Count 5.44 K/ul (4.8-10.8)
[2021-12-09 06:23] LABS: INR 1.3 (0.9-1.1)
[2021-12-09 06:30] LABS: Albumin Globulin Ratio 1.2 (0.9-2); Albumin Level 3.6 gm/dl (3.4-5.0); BUN Creatinine Ratio 14.4 (10-20); Bilirubin,Total 1.7 mg/dl (0.2-1.0); Creatinine Clr Calc Pharmacy 60.4 ml/min; Est GFR (African American) 58.5 ml/min; Est GFR (Non-African American) 50.5 ml/min; Potassium 2.7 mmol/L (3.5-5.1); Total Protein 6.6 gm/dl (6.0-8.3)
[2021-12-09] MEDS: POTASSIUM CHLORIDE / WTR 10 MEQ/100 ML PLCT IV SCH ×7 (08:08→15:20)
[2021-12-09] MEDS: HEPARIN SOD 5,000 UNIT/0.5 ML VIAL SQ SCH ×2 (08:08→19:46)
--- NOTE | 2021-12-09 08:37 | XRay Report ---
XR chest 1V portable CLINICAL HISTORY: Congestive heart failure. COMPARISON STUDY: No previous studies for comparison. FINDINGS: Left subclavian pacer/AICD is in place. There is no pneumothorax. No pleural effusion is id entified. Lung volumes are diminished. Moderate cardiomegaly is noted. There is mild interstitial pul monary edema. No consolidation to suggest pneumonia. IMPRESSION: Cardiomegaly with mild interstitial pulmonary edema. ACT 112: Negative or not required by law. Electronically signed by: David Mcallister M.D. 12/09/2021 8:36 AM
--- NOTE | 2021-12-09 12:17 | XCELERA ---
[id number]
[2021-12-09] MEDS: HYDROmorphone INJ 0.5 MG/0.5 ML SYR IV PRN (13:03)
--- NOTE | 2021-12-09 16:14 | Surgery Consultation ---
Date of Consultation December 09, 2021 Assessment & Plan (1) RUQ pain: pt is a 61 year-old male who was admitted to hospital for 4 weeks, history RUQ Pain, IMP: RUQ pain, cholelithiasis, chronic cholecystitis, Plan, recommend consult GI for ERCP possible remove CBD stone, HIDA scan, correct low k, NPO, iv fluid, antibiotic, control pain, repeat labs in morning, investment trader consult, will F/U , pt agrees with the plan, I answered all questions, History of Present Illness Reason for Consultation: RUQ pain Requesting Physician: Trent Chakraborty MD Attending Physician: Trent Chakraborty History of Present Illness Chief Complaint: RUQ pain Primary Care Provider: Jong Barrios 61 yo male with PMHx of afib on eliquis, CHF, AICD in place, hep C, CABG, CAD, LOCKE presents with RUQ pain. 4 weeks ago he started having right upper quadrant pain which has progressively gotten worse. He has had associated nausea, chest pain, shortness of breath at rest/exertion, headaches, fatigue, urinary retention. Denies fevers, vomiting. He has not had much of an appetite and many of his meals have been limited to toast and water. Due to his pain patient has only been taking some of his meds over the last few weeks which includes his Eliquis, Lasix, Entresto. Has not been taking his mononitrate, metoprolol, spironolactone. States he stays well-hydrated drinking about 80 ounces of water a day. Last bowel movement was 2 weeks ago with the help of bowel prep. Denies tobacco or recreational drug use. Alcohol use is about 2 beers a week. His mother and daughter have had their gallbladders removed due to gallstones. Of note he presented to [facility] yesterday for initial evaluation. Per ED note, we received outside records indicate the patient had a CT of his chest as well as a CT abdomen pelvis yesterday at [facility] and by the reports no PE but question of pulmonary hypertension as well as gallbladder wall thickening and mild pericholecystic fluid.Patient signed out AMA from there.Blood work there yesterday reports a D-dimer 1000, BNP of 1970, troponin 54, creatinine 1.7, white blood cell count of 8.0, troponin of 54, lipase of 128, sodium of 133, and total bilirubin of 1.6. I ( theodora Connelly MD ) got a call for consult RUQ pain, I reviewed pt's H/P, labs, U/s study with pt, pt feels better, less RUQ pain, Allergies Allergy/AdvReac Type Severity Reaction Status Date / Time codeine Allergy Severe chest Verified 12/08/21 22:08 pain,cold sweats Home Medications Medication Instructions Recorded Confirmed Type apixaban 5 mg tablet (Eliquis)C 5 mg PO DAILY 12/08/21 12/08/21 History furosemide 40 mg tablet 80 mg PO QPM 12/08/21 12/08/21 History isosorbide mononitrate 60 mg 60 mg PO QAM 12/08/21 12/08/21 Hi story tablet,extended release 24 hr metoprolol succinate 200 mg 200 mg PO DAILY 12/08/21 12/08/21 His tory tablet,extended release 24 hr sacubitril 49 mg-valsartan 51 mg 1 tab PO DAILY 12/08/21 2 History tablet (Entresto) spironolactone 25 mg tablet 25 mg PO DAILY 12/08/21 12/08/21 His tory Past Med/Surg History Medical History(Updated 12/08/21 @ 23:47 by Víctor Bird DO) Total bilirubin, elevated Upper abdominal pain Social History Smoking Status: Former smoker Feels Safe at Home: Yes Review of Systems Review of Systems: All systems reviewed & are unremarkable except as noted in HPI & below Allergies Allergy/AdvReac Type Severity Reaction Status Date / Time codeine Allergy Severe chest Verified 12/08/21 22:08 pain,cold sweats Home Medications Medication Instructions Recorded Confirmed Type apixaban 5 mg tablet (Eliquis) 5 mg PO DAILY 12/08/21 12/08/21 History furosemide 40 mg tablet 80 mg PO QPM 12/08/21 12/08/21 History isosorbide mononitrate 60 mg 60 mg PO QAM 12/08/21 12/08/21 History tablet,extended release 24 hr metoprolol succinate 200 mg 200 mg PO DAILY 12/08/21 12/08/21 History tablet,extended release 24 hr sacubitril 49 mg-valsartan 51 mg 1 tab PO DAILY 12/08/21 12/08/21 History tablet (Entresto) spironolactone 25 mg tablet 25 mg PO DAILY 12/08/21 12/08/21 History Patient History Medical History (Updated 12/08/21 @ 23:47 by Víctor Bird DO) Total bilirubin, elevated Upper abdominal pain Social History Smoking Status: Never smoker Hx Alcohol Use: Yes Hx Substance Use: No Preferred Language: Djiboutian Communication Ability: Effective Director Of Field Coordination Required: No Beliefs That Will Affect Care: None marital status: / Current Living Situation: Alone Feels Safe at Home: Yes Safety Concerns: Feels Safe At This Time Assistive Devices: None Physical Exam Constitutional: WD/WN, vitals as above Eyes: PERRL, conjunctivae normal, anicteric sclerae Neck: trachea midline, no thyromegaly Respiratory: normal respiratory effort, lungs clear to auscultation Cardiovascular: RRR, no murmur, no edema Gastrointestinal (Abdomen): soft, mild tenderness at RUQ, no rebound pain, no distend, BS + Musculoskeletal: no cyanosis or clubbing, extremities motor strength 5/5 Neurologic: patellar DTR's 2+ bilat, sensation intact Psychiatric: A+Ox3, euthymic affect Results & Data ([facility]) Vital Signs (Past 12 Hours) Vital Signs Temp Pulse Pulse Resp BP Pulse Ox O2 Del Method 12/09/21 11:39 36.6 C 86 20 110/85 93 Room Air 12/09/21 07:55 36.5 C 79 18 105/60 97 Room Air Laboratory Results Abnormal lab results 12/08/21 12/08/21 12/08/21 Range/Units 19:15 19:15 20:56 RBC 4.56 L (4.63-6.08) M/uL Hgb (14.0-18.0) g/dl Hct (40.1-51.0) % MPV 13.1 H (9.4-12.4) fL PT (9.0-12.0) Seconds INR (0.9-1.1) Sodium 131 L (136-145) mmol/L Potassium (3.5-5.1) mmol/L Chloride 91 L (98-107) mmol/L Anion Gap 16 H (3-11) Creatinine 1.82 H (0.6-1.4) mg/dl Glucose 115 H (70-99(Fasting)) mg/dl Magnesium 1.5 L (1.7-2.4) mg/dl Total Bilirubin 2.4 H (0.2-1.0) mg/dl AST (13-39) U/L Troponin I High Sens 62.1 H* (0-20) pg/ml B-Natriuretic Peptide (0-100) pg/ml Urine Protein (Negative) U Hyaline Cast (Auto) (0-5) /lpf U Epithel Cells (Auto) (0-5) /lpf 12/08/21 12/08/21 12/08/21 Range/Units 20:56 23:29 23:29 RBC (4.63-6.08) M/uL Hgb (14.0-18.0) g/dl Hct (40.1-51.0) % MPV (9.4-12.4) fL PT 14.5 H (9.0-12.0) Seconds INR 1.4 H (0.9-1.1) Sodium (136-145) mmol/L Potassium 3.2 L (3.5-5.1) mmol/L Chloride (98-107) mmol/L Anion Gap (3-11) Creatinine (0.6-1.4) mg/dl Glucose (70-99(Fasting)) mg/dl Magnesium (1.7-2.4) mg/dl Total Bilirubin (0.2-1.0) mg/dl AST 45 H (13-39) U/L Troponin I High Sens 58.4 H* (0-20) pg/ml B-Natriuretic Peptide (0-100) pg/ml Urine Protein (Negative) U Hyaline Cast (Auto) (0-5) /lpf U Epithel Cells (Auto) (0-5) /lpf 12/08/21 12/09/21 12/09/21 Range/Units 23:29 03:00 05:52 RBC 4.14 L (4.63-6.08) M/uL Hgb 13.1 L (14.0-18.0) g/dl Hct 38.3 L (40.1-51.0) % MPV (9.4-12.4) fL PT (9.0-12.0) Seconds INR (0.9-1.1) Sodium (136-145) mmol/L Potassium (3.5-5.1) mmol/L Chloride (98-107) mmol/L Anion Gap (3-11) Creatinine (0.6-1.4) mg/dl Glucose (70-99(Fasting)) mg/dl Magnesium (1.7-2.4) mg/dl Total Bilirubin (0.2-1.0) mg/dl AST (13-39) U/L Troponin I High Sens (0-20) pg/ml B-Natriuretic Peptide 1528 H (0-100) pg/ml Urine Protein 1+ H (Negative) U Hyaline Cast (Auto) 5-10 H (0-5) /lpf U Epithel Cells (Auto) 5-10 H (0-5) /lpf 12/09/21 12/09/21 12/09/21 Range/Units 05:52 05:52 05:52 RBC (4.63-6.08) M/uL Hgb (14.0-18.0) g/dl Hct (40.1-51.0) % MPV (9.4-12.4) fL PT 14.0 H (9.0-12.0) Seconds INR 1.3 H (0.9-1.1) Sodium 132 L (136-145) mmol/L Potassium 2.7 L (3.5-5.1) mmol/L Chloride 94 L (98-107) mmol/L Anion Gap 13 H (3-11) Creatinine 1.46 H D (0.6-1.4) mg/dl Glucose (70-99(Fasting)) mg/dl Magnesium (1.7-2.4) mg/dl Total Bilirubin 1.7 H (0.2-1.0) mg/dl AST (13-39) U/L Troponin I High Sens 50.0 H* (0-20) pg/ml B-Natriuretic Peptide (0-100) pg/ml Urine Protein (Negative) U Hyaline Cast (Auto) (0-5) /lpf U Epithel Cells (Auto) (0-5) /lpf Diagnostic Findings US gallbladder CLINICAL HISTORY: Abdominal pain, dry heaves,gallstones, GB inflamed TECHNIQUE: Multiple real-time sonographic images of the right upper quadrant were obtained. Comparison: None available at the time of this dictation. FINDINGS: The liver is diffusely coarsened in echotexture, with a nodular contour. The liver appears shrunken in appearance. These findings are suggestive of cirrhosis. The liver masses definitely seen. The main portal vein is hepatopedal but demonstrate slow flow. No intrahepatic ductal dilatation is seen. Gallstones are seen and there is mild wall thickening, the gallbladder wall measures approximately 4 mm. No pericholecystic fluid is seen. A sonographic Harris's sign was not elicited by the social studies teacher. The common duct measures 0.3 cm in diameter at the level of the hepatic artery. The pancreas is not well visualized secondary to overlying bowel gas. The right kidney shows normal echogenicity, cortical thickness and renal contour. The right kidney shows no evidence of hydronephrosis or mass. No ascites or free fluid is seen in Vazquez's pouch. IMPRESSION: 1. Gallstones and mild gallbladder wall thickening without pericholecystic fluid or Harris's sign. Findings are equivocal for cholecystitis. If there is clinical concern, nuclear medicine HIDA scan can be performed. 2. Cirrhosis.
[2021-12-09] MEDS ORDERED: POTASSIUM CHLORIDE 10 MEQ TABCR PO STA (16:23)
[2021-12-09 18:31] LABS: BUN Creatinine Ratio 13.3 (10-20); Calcium 9.4 mg/dl (8.5-10.1); Creatinine Clr Calc Pharmacy 55.8 ml/min; Est GFR (African American) 53.2 ml/min; Est GFR (Non-African American) 45.9 ml/min; Potassium 3.9 mmol/L (3.5-5.1)
[2021-12-09] MEDS: POTASSIUM CHLORIDE 10 MEQ TABCR PO SCH (19:45)
--- NOTE | 2021-12-09 20:37 | Hospitalist Progress Note ---
Date of Service December 09, 2021 Assessment & Plan (1) Gallstones: Plan: abdominal pain, outside CT showing gallstones with wall thickening, u/s showing similar findings, elevated t.bili, chills, etc - all concerning for acute cholecystitis. planning MRCP tomorrow given the elevated t.bili - r/o choledocholithiasis. may need to consider HIDA scan - defer final decision on that to surgery. family requests [facility] if/when he needs lap mónica. recheck LFTs in am. Cont rocephin/flagyl IV in the event he has acute cholecystitis. Defer on additional IVF given his severe CHF. NPO except chips/sips. if MRCP is + will need GI consultation. Depending on clinical course likely to need formal cardiology consultation for optimization for surgery. (2) Total bilirubin, elevated: Plan: isolated. check MRCP in am. check LFTs in am. if not biliary related could be due to passive congestion of liver from his severe systolic CHF. he does have evidence of cirrhosis on imaging - due to right sided CHF? prior etoh? other? (3) Elevated troponin I level: Plan: no evidence of ACS. likely myocardial demand ischemia. (4) Ischemic cardiomyopathy: Plan: with severely depressed EF - 20-25% resume beta hien in am albeit at lower dose. hold imdur. hold Entresto. hold aldactone. hold lasix - use prn for evidence of volume overload. (5) History of coronary artery disease: Plan: details unknown - gets all cardiac care in [place]. (6) Chronic systolic CHF (congestive heart failure): Plan: severe based on echo - EF 20-25%. appears compensated on exam today with stable o2 sats. no further IV fluids. if any volume overload - prn lasix. hold Entresto. hold aldactone. Resume BB in am. hold imdur. (7) ICD (implantable cardioverter-defibrillator) in place: Plan: [employer]. Device rep contacted; coming tomorrow ~10am to coordinate for MRCP. Obtain interrogation while rep is here. (8) History of atrial fibrillation: Plan: none seen on tele thus far. holding Eliquis due to potential need for lap mónica. resume BB tomorrow. (9) Hyponatremia: Plan: likely 2nd to chronic diuretic usage. BMP am. (10) Hypokalemia: Plan: replace IV. repeat K level later tonight and then again in am. (11) Hypomagnesemia: Plan: repleted & resolved. (12) DVT prophylaxis: Plan: while gina is on hold use SC heparin (13) Elevated serum creatinine: Plan: baseline creatinine uncertain. Cr levels here -- 1.4 to 1.8. repeat BMP am for stability. holding Entresto. Plan Divine - daughter - [phone] extensive update given to her by phone she voiced concerns regarding his heart disease and his fitness for surgery reassurance given that we would not kelly into surgery unless there is high certainty he indeed has acute cholecystitis AND we feel he is optimized from cardiac standpoint additional radiological testing will dictate plan of care her mentions her mother from COVID last year Admission and Anticipated Discharge Date Admission Date: December 08, 2021 Subjective patient c/o mod-severe abdominal pain - RUQ and high epigastric region fairly constant some mild nausea no vomiting today no chest pain no dyspnea at rest no stool since admission passing minimal flatus he asks for ice chips he thinks his ICD device is MRI-compatible follows with [place] [facility] for his cardiac issues Review of Systems Review of Systems: gen - no fevers, some chills cv - no chest pain, no orthopnea pulm - no cough GI - no diarrhea Physical Exam Physical Exam: gen - NAD, awake, alert mouth - MMM neck - no JVD heart - RRR, s1 s2, 2/6 STANLEY LSB lungs - minimal rales b/l bases, no wheeze abd - mildly distended, BS+, tender RUQ and epigastric region, no peritoneal signs ext - no edema, pulses 2+ b/l psych - a/o x 3 skin - no jaundice eyes - no icterus Results & Data Results & Data ([facility]) Vital Signs (Past 12 Hours) Vital Signs Temp Pulse Resp BP Pulse Ox O2 Del Method 12/09/21 19:14 36.9 C 94 H 18 129/82 97 Room Air 12/09/21 16:56 36.6 C 86 16 106/59 L 94 Room Air 12/09/21 11:39 36.6 C 86 20 110/85 93 Room Air Laboratory Results Laboratory Results - last 24 hr 12/08/21 12/08/21 12/08/21 20:56 20:56 21:35 WBC RBC Hgb Hct MCV MCH MCHC RDW Std Deviation RDW Coeff of Ijeoma Plt Count MPV Immature Gran % (Auto) Neut % (Auto) Lymph % (Auto) [place] % (Auto) Eos % (Auto) Baso % (Auto) Neut # (Auto) Lymph # (Auto) [place] # (Auto) Eos # (Auto) Baso # (Auto) Immature Gran # (Auto) PT 14.5 H INR 1.4 H Sodium Potassium Chloride Carbon Dioxide Anion Gap BUN Creatinine Est Cr Clr Drug Dosing Est GFR ( Amer) Est GFR (Non-Af Amer) BUN/Creatinine Ratio Glucose Calcium Magnesium 1.5 L Total Bilirubin AST ALT Alkaline Phosphatase Troponin I High Sens B-Natriuretic Peptide Total Protein Albumin Globulin Albumin/Globulin Ratio Urine Color Urine Appearance Urine pH Ur Specific Moore Urine Protein Urine Glucose (UA) Urine Ketones Urine Blood Urine Nitrite Urine Bilirubin Urine Urobilinogen Ur Leukocyte Esterase Urine WBC (Auto) Urine RBC (Auto) U Hyaline Cast (Auto) U Epithel Cells (Auto) Urine Bacteria (Auto) SARS-CoV-2, RNA, NAAT NEGATIVE 12/08/21 12/08/21 12/08/21 23:29 23:29 23:29 WBC RBC Hgb Hct MCV MCH MCHC RDW Std Deviation RDW Coeff of Ijeoma Plt Count MPV Immature Gran % (Auto) Neut % (Auto) Lymph % (Auto) [place] % (Auto) Eos % (Auto) Baso % (Auto) Neut # (Auto) Lymph # (Auto) [place] # (Auto) Eos # (Auto) Baso # (Auto) Immature Gran # (Auto) PT INR Sodium Potassium 3.2 L Chloride Carbon Dioxide Anion Gap BUN Creatinine Est Cr Clr Drug Dosing Est GFR ( Amer) Est GFR (Non-Af Amer) BUN/Creatinine Ratio Glucose Calcium Magnesium Total Bilirubin AST 45 H ALT Alkaline Phosphatase Troponin I High Sens 58.4 H* B-Natriuretic Peptide 1528 H Total Protein Albumin Globulin Albumin/Globulin Ratio Urine Color Urine Appearance Urine pH Ur Specific Moore Urine Protein Urine Glucose (UA) Urine Ketones Urine Blood Urine Nitrite Urine Bilirubin Urine Urobilinogen Ur Leukocyte Esterase Urine WBC (Auto) Urine RBC (Auto) U Hyaline Cast (Auto) U Epithel Cells (Auto) Urine Bacteria (Auto) SARS-CoV-2, RNA, NAAT 12/09/21 12/09/21 12/09/21 03:00 05:52 05:52 WBC 5.44 RBC 4.14 L Hgb 13.1 L Hct 38.3 L MCV 92.5 MCH 31.6 MCHC 34.2 RDW Std Deviation 43.5 RDW Coeff of Ijeoma 12.9 Plt Count 172 MPV 12.3 Immature Gran % (Auto) 0.4 Neut % (Auto) 60.3 Lymph % (Auto) 26.3 [place] % (Auto) 9.7 Eos % (Auto) 2.2 Baso % (Auto) 1.1 Neut # (Auto) 3.28 Lymph # (Auto) 1.43 [place] # (Auto) 0.53 Eos # (Auto) 0.12 Baso # (Auto) 0.06 Immature Gran # (Auto) 0.02 PT INR Sodium 132 L Potassium 2.7 L Chloride 94 L Carbon Dioxide 25 Anion Gap 13 H BUN 21 Creatinine 1.46 H D Est Cr Clr Drug Dosing 60.4 Est GFR ( Amer) 58.5 Est GFR (Non-Af Amer) 50.5 BUN/Creatinine Ratio 14.4 Glucose 87 Calcium 9.0 Magnesium 2.0 Total Bilirubin 1.7 H AST 39 ALT 20 Alkaline Phosphatase 72 Troponin I High Sens B-Natriuretic Peptide Total Protein 6.6 Albumin 3.6 Globulin 3.0 Albumin/Globulin Ratio 1.2 Urine Color Dark Yellow Urine Appearance Clear Urine pH 5.5 Ur Specific Moore 1.020 Urine Protein 1+ H Urine Glucose (UA) Negative Urine Ketones Negative Urine Blood Negative Urine Nitrite Negative Urine Bilirubin Negative Urine Urobilinogen Negative Ur Leukocyte Esterase Negative Urine WBC (Auto) 1-5 Urine RBC (Auto) 0-4 U Hyaline Cast (Auto) 5-10 H U Epithel Cells (Auto) 5-10 H Urine Bacteria (Auto) Negative SARS-CoV-2, RNA, NAAT 12/09/21 12/09/21 12/09/21 05:52 05:52 17:40 WBC RBC Hgb Hct MCV MCH MCHC RDW Std Deviation RDW Coeff of Ijeoma Plt Count MPV Immature Gran % (Auto) Neut % (Auto) Lymph % (Auto) [place] % (Auto) Eos % (Auto) Baso % (Auto) Neut # (Auto) Lymph # (Auto) [place] # (Auto) Eos # (Auto) Baso # (Auto) Immature Gran # (Auto) PT 14.0 H INR 1.3 H Sodium 131 L Potassium 3.9 D Chloride 94 L Carbon Dioxide 24 Anion Gap 13 H BUN 21 Creatinine 1.58 H Est Cr Clr Drug Dosing 55.8 Est GFR ( Amer) 53.2 Est GFR (Non-Af Amer) 45.9 BUN/Creatinine Ratio 13.3 Glucose 98 Calcium 9.4 Magnesium Total Bilirubin AST ALT Alkaline Phosphatase Troponin I High Sens 50.0 H* B-Natriuretic Peptide Total Protein Albumin Globulin Albumin/Globulin Ratio Urine Color Urine Appearance Urine pH Ur Specific Moore Urine Protein Urine Glucose (UA) Urine Ketones Urine Blood Urine Nitrite Urine Bilirubin Urine Urobilinogen Ur Leukocyte Esterase Urine WBC (Auto) Urine RBC (Auto) U Hyaline Cast (Auto) U Epithel Cells (Auto) Urine Bacteria (Auto) SARS-CoV-2, RNA, NAAT PG Care Time/CCT Total # of Minutes Spent Total Time Spent with Patient: Total time spent is greater than 50% in coordination of care (as documented) at patient's floor/unit and/or counseling patient: Coding Level of Care Code 16369 Subseq Hosp Care Lvl 3 Diagnoses Gallstones K80.20 Total bilirubin, elevated R17 Elevated troponin I level R77.8 Ischemic cardiomyopathy I25.5 History of coronary artery disease Z86.79 Chronic systolic CHF (congestive heart failure) I50.22 ICD (implantable cardioverter-defibrillator) in place Z95.810 History of atrial fibrillation Z86.79 Hyponatremia E87.1 Hypokalemia E87.6 Hypomagnesemia E83.42 DVT prophylaxis Z29.9 Elevated serum creatinine R79.89
--- NOTE | 2021-12-09 21:20 | Electrocardiogram Report ---
Test Reason : Blood Pressure : / mmHG Vent. Rate : 108 BPM Atrial Rate : 104 BPM P-R Int : 152 ms QRS Dur : 140 ms QT Int : 410 ms P-R-T Axes : 068 -37 131 degrees QTc Int : 549 ms Poor data quality, interpretation may be adversely affected Sinus tachycardia with Premature atrial complexes and frequent Premature ventricular complexes Left axis deviation Left bundle branch block Abnormal ECG No previous ECGs available Confirmed by Esvin Kirk ([id number]) on 12/09/2021 9:20:43 PM Referred By: REFERRED SELF Confirmed By:Esvin Kirk
--- NOTE | 2021-12-09 23:02 | Billing Data ---
Date of Service December 09, 2021 Coding Level of Care Code 15305 Initial Inpt Care Lvl 3
[2021-12-10] MEDS: HYDROmorphone INJ 0.5 MG/0.5 ML SYR IV PRN ×2 (02:32→16:56)
[2021-12-10] MEDS: cefTRIAXone SODIUM 2,000 MG/70 ML BAG IV SCH (02:33)
[2021-12-10] MEDS: metroNIDAZOLE 500 MG/100 ML BAG IV SCH ×3 (02:36→18:23)
[2021-12-10 06:24] LABS: Basophils # (auto) 0.07 K/uL (0-0.2); Basophils % (auto) 1.1 %; Eosinophils # (auto) 0.15 K/uL (0-0.50); Eosinophils % (auto) 2.4 %; Hematocrit (blood only) 40.1 % (40.1-51.0); Hemoglobin 13.9 g/dl (14.0-18.0); Immature Granulocytes # (auto) 0.01 K/uL (0.00-0.02); Immature Granulocytes % (auto) 0.2 %; Lymphocytes # (auto) 1.37 K/uL (1.2-3.4); Lymphocytes % (auto) 22.2 %; Mean Corpuscular Hemoglobin 32.2 pg (25.0-34.0); Mean Corpuscular Hgb Conc 34.7 g/dL (32.0-36.0); Mean Corpuscular Volume 92.8 fL (80.0-100.0); Mean Platelet Volume 12.7 fL (9.4-12.4); Monocytes # (auto) 0.57 K/uL (0.24-0.82); Monocytes % (auto) 9.2 %; Neutrophils # (auto) 4.01 K/uL (1.4-6.5); Neutrophils % (auto) 64.9 %; Platelet Count 194 K/uL (130-400); RDW Coefficient of Variation 12.9 % (11.5-14.5); RDW Standard Deviation 43.9 fL (36.4-46.3); Red Blood Count 4.32 M/uL (4.63-6.08); White Blood Count 6.18 K/ul (4.8-10.8)
[2021-12-10 06:55] LABS: Albumin Globulin Ratio 1.2 (0.9-2); Albumin Level 3.8 gm/dl (3.4-5.0); BUN Creatinine Ratio 15.2 (10-20); Bilirubin,Total 1.5 mg/dl (0.2-1.0); Calcium 9.1 mg/dl (8.5-10.1); Creatinine Clr Calc Pharmacy 61.2 ml/min; Est GFR (Non-African American) 50.9 ml/min; Globulin 3.3 gm/dl (2.5-4.0); Potassium 3.5 mmol/L (3.5-5.1); Total Protein 7.1 gm/dl (6.0-8.3)
[2021-12-10] MEDS: POTASSIUM CHLORIDE 10 MEQ TABCR PO SCH ×2 (08:22→20:27)
[2021-12-10] MEDS: HEPARIN SOD 5,000 UNIT/0.5 ML VIAL SQ SCH ×2 (08:22→20:28)
--- NOTE | 2021-12-10 09:50 | Surgery Progress Note ---
Date of Service December 10, 2021 Assessment & Plan (1) Gallstones: Plan: Workup for cholecystitis is ongoing, MRCP pending, HIDA was also recommended He is high surgical risk due to cardiomyopathy, Eliquis, cirrhosis Dr. Miles recommends he be evaluated by tertiary center for possible drainage vs cholecystectomy Admission and Anticipated Discharge Date Admission Date: December 08, 2021 Supervising Physician Co-Signing Physician Notes As per Mike STUART The patient apparently was seen in [place] initially complaining of chest pain was there approximately an hour and a half in the ER and he stated no one checked on him therefore he went to [facility] to be further worked up and with their findings he was transferred here The patient was concerned about insurance coverage the [facility] is not on the panel and they are concerned of possible expenditures The patient had no issues with Dr. Hernandez seeing him The patient stated that his sister apparently worked in the same building as Dr. Samuels years ago and she is the one that initiated the Dr. Samuels see the patient unfortunately is not available Abdominal findings patient does have some guarding on deep palpation in the right upper quadrant towards epigastric area My recommendation is I told the patient is to be transferred to a tertiary center for I feel his gallbladder is an issue and given his very limited cardiac reserve (the patient can barely walk from the hospital bed to the bathroom because of chest pain) making her very high risk for surgery a tertiary center may be able to place a cholecystostomy tube interventional radiologist a facility that we do not have here at [facility] The patient has no issues to being transferred. I just discussed the situation with Dr. Chakraborty and he agrees with our plan to transfer patient and he we will initiate those plans Subjective 61 y/o male c/o 3 weeks abdominal bloating, pain, anorexia, 15 pound weight loss We were asked to see due to concern for possible insurance issues Review of Systems Constitutional: + anorexia and + weight loss; no fever and no chills Respiratory: + dyspnea on exertion Cardiovascular: + chest pain with activity Gastrointestinal: + abdominal pain, + bloating and + nausea Physical Exam Constitutional: WD/WN, vitals as above Gastrointestinal (Abdomen): Inspection/Auscultation: abdomen normal to inspection Percussion/Palpation: + abdomen tender (mild epigastric) and abdomen soft; no guarding Results & Data ([facility]) Vital Signs (Past 12 Hours) Vital Signs Temp Pulse Pulse Resp BP Pulse Ox O2 Del Method 12/10/21 07:55 86 12/10/21 07:55 Room Air 12/10/21 07:24 36.8 C 83 18 115/82 94 Room Air 12/10/21 03:35 36.8 C 88 16 112/65 95 Room Air 12/09/21 22:18 90 12/09/21 23:29 36.7 C 91 H 18 116/74 96 Room Air PG Care Time/CCT Total # of Minutes Spent Total Time Spent with Patient: Total time spent is greater than 50% in coordination of care (as documented) at patient's floor/unit and/or counseling patient: Coding Level of Care Code 41183 Subseq Hosp Care Lvl 2 Diagnoses Gallstones K80.20
--- NOTE | 2021-12-10 11:41 | Magnetic Resonance Report ---
MRCP CLINICAL HISTORY: Possible acute cholecystitis, elevated total bilirubin. TECHNIQUE: Utilizing a 1.5 Liv magnet and dedicated coil, multiplanar, multiecho imaging of the [facility] abdomen was performed utilizing heavily T2 weighted pulsing sequences without IV contrast. COMPARISON STUDY: Right upper quadrant ultrasound December 08, 2021. FINDINGS: A [id number] right pleural effusion is partially imaged. Cardiomegaly is noted. The liver is cirrhotic. No hepatic lesions are identified on this unenhanced exam. No intra or extra hepa tic biliary ductal dilatation is identified. No common bile duct calculi are identified although sens itivity is significantly diminished given motion artifact on the 3-D MRCP sequence. There are multipl e small gallstones within the gallbladder. Gallbladder is slightly distended. There is trace perichol ecystic fluid. Trace perihepatic ascites is present. There is borderline splenomegaly. Adrenal glands and kidneys are unremarkable. There is no hydronephrosis. Suspected pancreatic glandular atrophy is present. No pancreatic ductal dilatation is identified although the pancreas is suboptimally assessed on this exam. Prominent peripancreatic lymph node measures 2 x 1.1 cm. This is probably benign. Dash t[place] of visualized small and large bowel are normal. Bilateral flank subcutaneous edema is incidentall y noted. No fluid collection within the abdomen. IMPRESSION: 1. No biliary ductal dilatation. No common bile duct calculi identified although sensitivity is decre ased given respiratory motion artifact. 2. Cholelithiasis. Mild gallbladder distention with trace pericholecystic fluid. Findings remain inde terminate. If suspicion for acute cholecystitis, a hepatobiliary scan could be obtained. 3. Cirrhosis. 4. Small to moderate right pleural effusion. 5. Prominent peripancreatic lymph node. This is likely benign. However, a follow-up CT of the abdomen 6 months to ensure stability is recommended. ACT 112: Negative or not required by law. Electronically signed by: David Mcallister M.D. 12/10/2021 11:40 AM
[2021-12-10] MEDS ORDERED: METOPROLOL SUCC 50MG EXT REL TAB PO STA (14:05)
--- NOTE | 2021-12-10 20:39 | Hospitalist Progress Note ---
Date of Service December 10, 2021 Assessment & Plan (1) Gallstones: Plan: Constellation of abdominal pain, outside CT showing gallstones with wall thickening, u/s showing similar findings, MRCP with stones/pericholecystic fluid/GB distension, elevated t.bili and AST,, etc - all concerning for acute cholecystitis. no evidence of choledocholithiasis on MRCP today. AST and t.bili elevation mild and improved from prior labs. has seen 2 different surgeons this stay and both feel that acute cholecystitis is likely. Cont rocephin/flagyl IV. Defer on additional IVF given his severe CHF. NPO except chips/sips. Both [facility] and [facility] feel that given his high surgical risk (2nd to advanced cardiac disease as well as cirrhosis) he would be best served in a tertiary care center - see below. Pt has been accepted at [facility] in [place]. (2) Acute cholecystitis: Plan: cont IV abx and supportive care. cont pain meds prn. see below re: transfer. (3) Total bilirubin, elevated: Plan: MRCP without signs of choledocholithiasis. T.bili has trended down since admission. if not biliary related could be due to passive congestion of liver from his severe systolic CHF or due to his cirrhosis itself. (4) Elevated troponin I level: Plan: no evidence of ACS. likely myocardial demand ischemia in the setting of #1. (5) Ischemic cardiomyopathy: Plan: with severely depressed EF - 20-25% resume beta hien although at smaller dose of 50mg of metoprolol succinate. hold imdur. hold Entresto. hold aldactone. hold lasix - use prn for evidence of volume overload. (6) History of coronary artery disease: Plan: s/p 2-vessel CABG 20+ years ago. no stents since the CABG. follows with Dr Guevara in [place]. (7) Chronic systolic CHF (congestive heart failure): Plan: severe; echo here- EF 20-25%. He reports that this EF has been his EF on prior echos. appears compensated on exam once again today with stable o2 sats. no further IV fluids. if any volume overload - prn lasix. hold Entresto. hold aldactone. Resume BB today. hold imdur. (8) ICD (implantable cardioverter-defibrillator) in place: Plan: [employer]. Device rep contacted and that person coordinated his MRCP today. (9) History of atrial fibrillation: Plan: none seen on tele thus far. holding Eliquis due to potential need for lap mónica. resume BB today. (10) Hyponatremia: Plan: likely 2nd to chronic diuretic usage. BMP am. (11) Hypokalemia: Plan: replaced and resolved. (12) Hypomagnesemia: Plan: repleted & resolved. (13) DVT prophylaxis: Plan: while eliquis is on hold use SC heparin (14) Elevated serum creatinine: Plan: baseline creatinine uncertain. Cr levels here -- 1.4 to 1.8. repeat BMP today with Cr 1.4. thus, some element of CKD. holding Entresto. repeat BMP am for stability. (15) Cirrhosis: Plan: past h/o HepC s/p treatment for such. all imaging studies with cirrhotic appearing liver. he remains compensated from volume standpoint. Plan [facility] - [phone] extensive update given to her by phone on 12/09/21 in light of need for transfer fpr consideration of lap mónica (vs cholecystostomy tube) and given his [facility] insurance I contacted [facility] in [place] initially spoke with the hospitalist team and surgery at [facility] [place] surgery there declined his transfer - felt that he was too high risk for [place] and she be in tertiary care center where liver services are available given his cirrhosis waited much of the day for [facility] to call back - did not hear this afternoon I called [facility] again late this evening (~830pm) and finally spoke to the hospitalist as well as general surgery at [facility] Kassi Dillard from surgery accepted Mr Ott in transfer I notified nursing of his acceptance who in turn will let Mr Ott know about pending transfer [facility] felt it would take days before his transfer would occur total time with care coordination today with numerous phone calls as above and several discussions with gen surg here -- 80 minutes Admission and Anticipated Discharge Date Admission Date: December 08, 2021 Subjective patient reports his abdominal pain is improved from yesterday no nausea or emesis no diarrhea no chest pain or dyspnea tele stable overnight Review of Systems Review of Systems: gen - no fevers or chills cv - no cp, no orthopnea pulm - no cough or dyspnea or [facility] GI - no change in location or character of his pain Physical Exam Physical Exam: gen - NAD mouth - MMM neck - no JVD heart - RRR, s1 s2, 2/6 STANLEY LSB lungs - scant rales b/l bases, no wheeze; CTA b/l otherwise; mildly decreased BS right base abd - soft, BS+, minimally tender RUQ and epigastric region, no peritoneal signs ext - no edema, pulses 2+ b/l psych - a/o x 3 skin - no jaundice eyes - no icterus Results & Data Results & Data ([facility]) Vital Signs (Past 12 Hours) Vital Signs Temp Pulse Resp BP Pulse Ox O2 Del Method 12/10/21 19:00 36.5 C 92 H 18 119/82 96 Room Air 12/10/21 15:45 36.4 C L 91 H 17 109/73 94 Room Air 12/10/21 11:17 36.8 C 67 17 118/90 95 Room Air Laboratory Results Laboratory Results - last 24 hr 12/10/21 12/10/21 05:59 05:59 WBC 6.18 RBC 4.32 L Hgb 13.9 L Hct 40.1 MCV 92.8 MCH 32.2 MCHC 34.7 RDW Std Deviation 43.9 RDW Coeff of Ijeoma 12.9 Plt Count 194 MPV 12.7 H Immature Gran % (Auto) 0.2 Neut % (Auto) 64.9 Lymph % (Auto) 22.2 Victoria % (Auto) 9.2 Eos % (Auto) 2.4 Baso % (Auto) 1.1 Neut # (Auto) 4.01 Lymph # (Auto) 1.37 Victoria # (Auto) 0.57 Eos # (Auto) 0.15 Baso # (Auto) 0.07 Immature Gran # (Auto) 0.01 Sodium 131 L Potassium 3.5 Chloride 96 L Carbon Dioxide 25 Anion Gap 10 BUN 22 Creatinine 1.45 H Est Cr Clr Drug Dosing 61.2 Est GFR ( Amer) 59.0 Est GFR (Non-Af Amer) 50.9 BUN/Creatinine Ratio 15.2 Glucose 95 Calcium 9.1 Total Bilirubin 1.5 H AST 44 H ALT 24 Alkaline Phosphatase 75 Total Protein 7.1 Albumin 3.8 Globulin 3.3 Albumin/Globulin Ratio 1.2 Diagnostic Findings Cholangiopancreatography MRI 12/10/21 10:00 MRCP CLINICAL HISTORY: Possible acute cholecystitis, elevated total bilirubin. TECHNIQUE: Utilizing a 1.5 Liv magnet and dedicated coil, multiplanar, multiecho imaging of the upper abdomen was performed utilizing heavily T2 weighted pulsing sequences without IV contrast. COMPARISON STUDY: Right upper quadrant ultrasound December 08, 2021. FINDINGS: A [id number] right pleural effusion is partially imaged. Cardiomegaly is noted. The liver is cirrhotic. No hepatic lesions are identified on this unenhanced exam. No intra or extra hepatic biliary ductal dilatation is identified. No common bile duct calculi are identified although sensitivity is significantly diminished given motion artifact on the 3-D MRCP sequence. There are multiple small gallstones within the gallbladder. Gallbladder is slightly distended. There is trace pericholecystic fluid. Trace perihepatic ascites is present. There is borderline splenomegaly. Adrenal glands and kidneys are unremarkable. There is no hydronephrosis. Suspected pancreatic glandular atrophy is present. No pancreatic ductal dilatation is identified although the pancreas is suboptimally assessed on this exam. Prominent peripancreatic lymph node measures 2 x 1.1 cm. This is probably benign. Caliber of visualized small and large bowel are normal. Bilateral flank subcutaneous edema is incidentally noted. No fluid collection within the abdomen. IMPRESSION: 1. No biliary ductal dilatation. No common bile duct calculi identified although sensitivity is decreased given respiratory motion artifact. 2. Cholelithiasis. Mild gallbladder distention with trace pericholecystic fluid. Findings remain indeterminate. If suspicion for acute cholecystitis, a hepatobiliary scan could be obtained. 3. Cirrhosis. 4. Small to moderate right pleural effusion. 5. Prominent peripancreatic lymph node. This is likely benign. However, a follow-up CT of the abdomen 6 months to ensure stability is recommended. ACT 112: Negative or not required by law. Electronically signed by: David Mcallister M.D. 12/10/2021 11:40 AM PG Care Time/CCT Total # of Minutes Spent Total Time Spent with Patient: Total time spent is greater than 50% in coordination of care (as documented) at patient's floor/unit and/or counseling patient: Prolonged Care Time Prolonged Care Time: Yes Total Prolonged Care Time: 80 Coding Level of Care Code 96127 Subseq Hosp Care Lvl 3 (25 - SIGNIFICANT, SEPARATELY IDENTIFIABLE ) Diagnoses Gallstones K80.20 Acute cholecystitis K81.0 Total bilirubin, elevated R17 Elevated troponin I level R77.8 Ischemic cardiomyopathy I25.5 History of coronary artery disease Z86.79 Chronic systolic CHF (congestive heart failure) I50.22 ICD (implantable cardioverter-defibrillator) in place Z95.810 History of atrial fibrillation Z86.79 Hyponatremia E87.1 Hypokalemia E87.6 Hypomagnesemia E83.42 DVT prophylaxis Z29.9 Elevated serum creatinine R79.89 Cirrhosis K74.60 Additional Codes Prolonged Care Time - Prolonged Care Time: Yes ([id number]) Time Spent (min) 80
[2021-12-10] MEDS ORDERED: PROMETHAZINE HCL 25 MG TAB PO PRN (23:51)
[2021-12-11 01:41] LABS: Basophils # (auto) 0.04 K/uL (0-0.2); Basophils % (auto) 0.5 %; Eosinophils # (auto) 0.01 K/uL (0-0.50); Eosinophils % (auto) 0.1 %; Hematocrit (blood only) 46.4 % (40.1-51.0); Hemoglobin 15.5 g/dl (14.0-18.0); Immature Granulocytes # (auto) 0.03 K/uL (0.00-0.02); Immature Granulocytes % (auto) 0.3 %; Lymphocytes # (auto) 0.78 K/uL (1.2-3.4); Mean Corpuscular Hemoglobin 32.4 pg (25.0-34.0); Mean Corpuscular Hgb Conc 33.4 g/dL (32.0-36.0); Mean Corpuscular Volume 97.1 fL (80.0-100.0); Mean Platelet Volume 12.5 fL (9.4-12.4); Monocytes # (auto) 0.64 K/uL (0.24-0.82); Monocytes % (auto) 7.4 %; Neutrophils # (auto) 7.16 K/uL (1.4-6.5); Neutrophils % (auto) 82.7 %; Platelet Count 219 K/uL (130-400); RDW Coefficient of Variation 13.3 % (11.5-14.5); RDW Standard Deviation 47.5 fL (36.4-46.3); Red Blood Count 4.78 M/uL (4.63-6.08); White Blood Count 8.66 K/ul (4.8-10.8)
[2021-12-11 02:06] LABS: Troponin I High Sensitivity 46.2 pg/ml (0-20)
[2021-12-11 02:08] LABS: Albumin Globulin Ratio 1.2 (0.9-2); Albumin Level 4.2 gm/dl (3.4-5.0); BUN Creatinine Ratio 12.1 (10-20); Bilirubin,Total 2.6 mg/dl (0.2-1.0); Calcium 9.9 mg/dl (8.5-10.1); Creatinine Clr Calc Pharmacy 41.5 ml/min; Est GFR (African American) 36.8 ml/min; Est GFR (Non-African American) 31.8 ml/min; Globulin 3.5 gm/dl (2.5-4.0); Potassium 4.2 mmol/L (3.5-5.1); Total Protein 7.7 gm/dl (6.0-8.3)
[2021-12-11] MEDS ORDERED: METOPROLOL SUCC 50MG EXT REL TAB PO SCH (09:00)
[2021-12-11] MEDS: POTASSIUM CHLORIDE 10 MEQ TABCR PO SCH (09:05)
[2021-12-11] MEDS: HEPARIN SOD 5,000 UNIT/0.5 ML VIAL SQ SCH (09:05)
[2021-12-11 09:14] VITALS: BP 115/60
[2021-12-11 09:47] LABS: Albumin Globulin Ratio 1.2 (0.9-2); Albumin Level 4.1 gm/dl (3.4-5.0); BUN Creatinine Ratio 11.2 (10-20); Bilirubin,Total 3.5 mg/dl (0.2-1.0); Calcium 10.4 mg/dl (8.5-10.1); Creatinine Clr Calc Pharmacy 32.1 ml/min; Est GFR (African American) 27.1 ml/min; Est GFR (Non-African American) 23.4 ml/min; Globulin 3.5 gm/dl (2.5-4.0); Total Protein 7.6 gm/dl (6.0-8.3)
[2021-12-11] MEDS ORDERED: DEXTROSE 50% 50 ML SYRINGE IV ONE ×2 (09:52→10:02)
[2021-12-11] MEDS ORDERED: STAT IV STA (09:53)
[2021-12-11] MEDS ORDERED: SODIUM CHLORIDE 0.9% 1000ML 1,000 ML IV SCH (10:00)
[2021-12-11] MEDS ORDERED: D5W AND LACTATED RINGERS 1,000 ML IV SCH (10:00)
[2021-12-11] MEDS ORDERED: SODIUM BICARBONATE 8.4% 150 MEQ in DEXTROSE 5% 1,000 ML IV SCH (10:15)
[2021-12-11] MEDS ORDERED: PIPERACILLIN/TAZOBACTAM 3.375 GM in DEXTROSE 5% 100 ML IV ONE (10:15)
[2021-12-11] MEDS ORDERED: FAMOTIDINE 20 MG in SYRINGE 3 ML IV ONE (10:16)
--- NOTE | 2021-12-11 10:22 | Discharge Summary ---
Date of Service date of admission - December 08, 2021 date of discharge - December 11, 2021 Admission HPI Per Admitting Provider 61 yo male with PMHx of afib on eliquis, CHF, AICD in place, hep C, CABG, CAD, LOCKE presents with RUQ pain. 4 weeks ago he started having right upper quadrant pain which has progressively gotten worse. He has had associated nausea, chest pain, shortness of breath at rest/exertion, headaches, fatigue, urinary retention. Denies fevers, vomiting. He has not had much of an appetite and many of his meals have been limited to toast and water. Due to his pain patient has only been taking some of his meds over the last few weeks which includes his Eliquis, Lasix, Entresto. Has not been taking his mononitrate, metoprolol, spironolactone. States he stays well-hydrated drinking about 80 ounces of water a day. Last bowel movement was 2 weeks ago with the help of bowel prep. Denies tobacco or recreational drug use. Alcohol use is about 2 beers a week. His mother and daughter have had their gallbladders removed due to gallstones. Of note he presented to [facility] yesterday for initial evaluation. Per ED note, we received outside records indicate the patient had a CT of his chest as well as a CT abdomen pelvis yesterday at [facility] and by the reports no PE but question of pulmonary hypertension as well as gallbladder wall thickening and mild pericholecystic fluid.Patient signed out AMA from there.Blood work there yesterday reports a D-dimer 1000, BNP of 1970, troponin 54, creatinine 1.7, white blood cell count of 8.0, troponin of 54, lipase of 128, sodium of 133, and total bilirubin of 1.6. Principal Diagnosis Acute cholecystitis with concern for developing gangrenous cholecystitis Acute kidney injury Lactic acidosis Severe, chronic systolic CHF - EF 20-25% Cirrhosis Discharge Exam gen - NAD, comfortable mouth - MM dry neck - no JVD heart - RRR, s1 s2, 2/6 STANLEY LSB lungs - scant rales b/l bases, no wheeze; CTA b/l otherwise abd - soft, BS+, moderate tenderness RUQ and epigastric region, no peritoneal signs; mild distension ext - no edema, pulses 1+ b/l, cool to touch psych - a/o x 3 skin - no jaundice eyes - no icterus Discharge Data Allergies Allergy/AdvReac Type Severity Reaction Status Date / Time codeine Allergy Severe chest Verified 12/08/21 22:08 pain,cold sweats Consultations General Surgery Critical Care Procedures Performed Echocardiogram: * EF 20-25% * global hypokinesis * akinesis of inferolateral wall * LVH * PVCs during the study * mild pulmonary HTN * moderate tricuspid regurgitation * mild-moderate mitral regurgitation Ordered Studies Gallbladder Ultrasound 12/08/21 17:39 US gallbladder CLINICAL HISTORY: Abdominal pain, dry heaves,gallstones, GB inflamed TECHNIQUE: Multiple real-time sonographic images of the right upper quadrant were obtained. Comparison: None available at the time of this dictation. FINDINGS: The liver is diffusely coarsened in echotexture, with a nodular contour. The liver appears shrunken in appearance. These findings are suggestive of cirrhosis. The liver masses definitely seen. The main portal vein is hepatopedal but demonstrate slow flow. No intrahepatic ductal dilatation is seen. Gallstones are seen and there is mild wall thickening, the gallbladder wall measures approximately 4 mm. No pericholecystic fluid is seen. A sonographic Harris's sign was not elicited by the director of procurement. The common duct measures 0.3 cm in diameter at the level of the hepatic artery. The pancreas is not well visualized secondary to overlying bowel gas. The right kidney shows normal echogenicity, cortical thickness and renal contour. The right kidney shows no evidence of hydronephrosis or mass. No ascites or free fluid is seen in Vazquez's pouch. IMPRESSION: 1. Gallstones and mild gallbladder wall thickening without pericholecystic fluid or Harris's sign. Findings are equivocal for cholecystitis. If there is clinical concern, nuclear medicine HIDA scan can be performed. 2. Cirrhosis. ACT 112: Negative or not required by law. Electronically signed by: Gregg Wilson M.D. 12/08/2021 9:00 PM Chest X-Ray 12/08/21 23:41 XR chest 1V portable CLINICAL HISTORY: Congestive heart failure. COMPARISON STUDY: No previous studies for comparison. FINDINGS: Left subclavian pacer/AICD is in place. There is no pneumothorax. No pleural effusion is identified. Lung volumes are diminished. Moderate cardiomegaly is noted. There is mild interstitial pulmonary edema. No consolidation to suggest pneumonia. IMPRESSION: Cardiomegaly with mild interstitial pulmonary edema. ACT 112: Negative or not required by law. Electronically signed by: David Mcallister M.D. 12/09/2021 8:36 AM Cholangiopancreatography MRI 12/10/21 10:00 MRCP CLINICAL HISTORY: Possible acute cholecystitis, elevated total bilirubin. TECHNIQUE: Utilizing a 1.5 Liv magnet and dedicated coil, multiplanar, multiecho imaging of the upper abdomen was performed utilizing heavily T2 weighted pulsing sequences without IV contrast. COMPARISON STUDY: Right upper quadrant ultrasound December 08, 2021. FINDINGS: A [id number] right pleural effusion is partially imaged. Cardiomegaly is noted. The liver is cirrhotic. No hepatic lesions are identified on this unenhanced exam. No intra or extra hepatic biliary ductal dilatation is identified. No common bile duct calculi are identified although sensitivity is significantly diminished given motion artifact on the 3-D MRCP sequence. There are multiple small gallstones within the gallbladder. Gallbladder is slightly distended. There is trace pericholecystic fluid. Trace perihepatic ascites is present. There is borderline splenomegaly. Adrenal glands and kidneys are unremarkable. There is no hydronephrosis. Suspected pancreatic glandular atrophy is present. No pancreatic ductal dilatation is identified although the pancreas is suboptimally assessed on this exam. Prominent peripancreatic lymph node measures 2 x 1.1 cm. This is probably benign. Caliber of visualized small and large bowel are normal. Bilateral flank subcutaneous edema is incidentally noted. No fluid collection within the abdomen. IMPRESSION: 1. No biliary ductal dilatation. No common bile duct calculi identified although sensitivity is decreased given respiratory motion artifact. 2. Cholelithiasis. Mild gallbladder distention with trace pericholecystic fluid. Findings remain indeterminate. If suspicion for acute cholecystitis, a hepatobiliary scan could be obtained. 3. Cirrhosis. 4. Small to moderate right pleural effusion. 5. Prominent peripancreatic lymph node. This is likely benign. However, a follow-up CT of the abdomen 6 months to ensure stability is recommended. ACT 112: Negative or not required by law. Electronically signed by: David Mcallister M.D. 12/10/2021 11:40 AM Hospital Course (1) Gallstones: Patient presented with acute/chronic abdominal pain. He had had intermittent abdominal pain for several weeks, ultimately becoming constant about 1-2 days prior to admission. Had gone to [facility] ER about 24 hours prior to his presentation to [facility]. CT abd/pelvis at [place] showed gallstones and other gall bladder features worrisome for acute cholecystitis. He left [place] ER and went home but pain persisted. Thus, he presented to [facility] on 12/08/21 with persistent abdominal pain. RUQ u/s in our ER also showed gallstones and gall bladder wall thickening. His constellation of abdominal pain, outside CT showing gallstones with wall thickening, u/s showing similar findings, MRCP with stones/pericholecystic fluid/GB distension, elevated t.bili and AST, etc were all concerning for acute cholecystitis. His MRCP here did not show evidence of choledocholithiasis. He initially received rocephin/flagyl IV, gentle IV fluids given his severe CHF, and supportive care. He was initially seen by [facility] general surgery and then [facility] [place] at the patient's family's request. His abdominal pain initially improved and his total bilirubin and elevated AST trended down. Both general surgery teams felt he would be best served at a tertiary care center for intervention on his gall bladder (regardless of whether cholecystectomy or cholecystostomy tube was used to intervene). His severe systolic CHF (EF 20%) and cirrhosis made him a very high risk surgical candidate. On 12/10/21, [facility] was contacted to request transfer. Transfer to [facility] was initially requested but referral denied - surgeons at [place] felt he would be best served in [place]. Ultimately Dr Dillard -general surgery at [facility] in [place]- accepted patient in transfer on the evening of 12/10. Late in the evening of 12/10, however, the patient's abdominal pain became much worse. He developed recurrent vomiting. Labs showed worsening renal function and rising LFTs. On the AM of 12/11 again labs showed worsening LFTs and worsening renal function (Cr demetrio from 1.4 --> 2.1 --> 2.7). He had a very high anion gap acidosis due to lactic acidosis with lactic acid level of 9.8. His rocephin/flagyl were discontinued in favor of IV zosyn. Blood cultures were dispatched. He was transferred to the ICU. HE was seen by the critical care attending. NS bolus was given followed by sodium bicarbonate drip. He was seen again by general surgery and tertiary care transfer was still advised due to high surgical risk. I called [facility] and spoke with Dr Ryan Sexton from general surgery, [facility]. Explained clinical worsening including new-onset VENTURA, lactic acidosis, and crescendoing abdominal pain. All signs were worrisome for development of gangrenous gall bladder. Dr Sexton requested ICU bed at [facility]. A short time later the patient was transferred via helicopter to [facility] ICU. (2) Acute kidney injury: Baseline creatinine appears to be 1.4. He had VENTURA on day of discharge with rise to 2.7. This was consistent with ATN in the setting of his acute cholecystitis and sepsis. Sodium bicarbonate drip was started several hours prior to his transfer to [facility]. (3) Lactic acidosis: Initial level 9.8, improving to 7.1 just prior to transfer to [place] following fluid resuscitation & bicarbonate drip. (4) Acute cholecystitis: see #1 above. (5) Severe sepsis: 2nd to #4. <30cc/kg fluid bolus given due to severe CHF (EF 20%). see discussion above in #1, #2, #3. Blood cultures pending at time of transfer. He received IV antibiotics the entire stay. (6) Total bilirubin, elevated: MRCP without signs of choledocholithiasis. T.bili had initially trended down with conservative measures early in the stay, but then worsened on day of discharge to >3 concerning for worsening cholecys titis and/or CBD obstruction. (7) Elevated troponin I level: no evidence of ACS while here. likely myocardial demand ischemia in the setting of #1 and #5. peak high-sensitive troponin = 62. level was 45 just prior to transfer. (8) Ischemic cardiomyopathy: With severely depressed EF - 20-25%. Imdur, Entresto, aldactone and lasix were all held while here. His metoprolol dose was reduced from 200mg daily to 50mg daily during the stay. He was compensated the entire hospitalization. (9) History of coronary artery disease: s/p 2-vessel CABG 20+ years ago. no stents since the CABG. follows with Dr Guevara in [place]. no evidence of ACS while here. (10) Chronic systolic CHF (congestive heart failure): severe; echo here- EF 20-25%. He reports that this EF has been his EF on prior echos as completed in [place]. appeared compensated on exam the entire stay. see #8 above. (11) ICD (implantable cardioverter-defibrillator) in place: [employer]. Device rep contacted and that person coordinated his MRCP during the stay. He has a LBBB at baseline. No arrhythmia seen on telemetry during the hospitalization. (12) History of atrial fibrillation: none seen on tele while here. Eliquis WAS HELD the entire stay. (13) Hyponatremia: likely 2nd to chronic diuretic usage. discharge Na level = 137. (14) Hypokalemia: replaced and resolved. (15) Hypomagnesemia: repleted and resolved. (16) DVT prophylaxis: SC heparin was used while Eliquis was on hold. (17) Elevated serum creatinine: Baseline creatinine uncertain - no prior records available at [facility]. However, his creatinine was 1.4 on several days (before the development of his VENTURA). (18) Cirrhosis: past h/o HepC s/p treatment for such. all imaging studies consistent with cirrhotic appearing liver. he remained compensated from volume standpoint the entire stay. Plan Family Contacts: 1. Divine - daughter - [phone] 2. Corby Martínez - patient's sister - [phone] I would like to thank Dr Ryan Sexton - general surgery at [facility] - for accepting and coordinating Mr Ott's transfer to the ICU in [place]. Total Time Total Time Spent Total Time Spent (In Minutes): 90 minutes critical care time on day of discharge (see supplemental communication note as well) Discharge Plan Discharge Items Patient Disposition: Transfer Acute Care Hospital Reason For Visit: RUQ PAIN Discharge Diagnosis: Acute cholecystitis with concerns for developing gangrenous gall bladder Worsening abnormal LFTs Lactic Acidosis Acute renal failure CKD stage 3a Chronic systolic CHF, EF 20-25% Ischemic cardiomyopathy Cirrhosis of the liver with past h/o HepC - latter treated with antiviral therapy ICD h/o CAD s/p 2-vessel CABG 20+ years ago h/o a.fib hyponatremia hypokalemia/hypomagnesemia Activity: As commented below Activity Comment: bedrest Non-emergency contact: Primary Care Provider and [employer] Call non-emergency contact if: you have any medication questions Follow-up/Referrals: Jong Barrios [Primary Care Provider] - Diet: Nothing by Mouth Addtl Attending Provider Instructions: Further instructions to follow after your stay at [facility]. Pending Studies at Discharge: Yes Studies:: blood cultures Stand-Alone Forms: My [employer] Skilled Items Patient informed of condition?: Yes DNR: No Discharge Level of Care: Other Communicable Disease: No Discharge Prognosis: Deteriorating Lines: Peripheral IV Urinary Catheter: No Medications and DC Order Prescriptions: Discontinued furosemide 40 mg tablet 80 mg PO QPM metoprolol succinate 200 mg tablet extended release 24 hr 200 mg PO DAILY spironolactone 25 mg tablet 25 mg PO DAILY isosorbide mononitrate 60 mg tablet extended release 24 hr 60 mg PO QAM Eliquis 5 mg tablet 5 mg PO DAILY Entresto 49-51 mg tablet 1 tab PO DAILY Discharge Orders: Discharge Order (Routine); Ordered 12/11/21 Ordered By: Trent Chakraborty Admission Data Admit Date/Time: 12/08/21 23:38 Attending Provider: Trent Chakraborty Admit Provider: Víctor Bird Primary Care Provider: Jong Barrios Other Providers: Cristhian Beach ; John Hernandez ; Darion Daley Other Interventions: Discharge Summary Assessment (RN) Last Done: 12/11/21 14:00 Coding Level of Care Code None Diagnoses Gallstones K80.20 Acute kidney injury N17.9 Lactic acidosis E87.2 Acute cholecystitis K81.0 Severe sepsis A41.9; R65.20 Total bilirubin, elevated R17 Elevated troponin I level R77.8 Ischemic cardiomyopathy I25.5 History of coronary artery disease Z86.79 Chronic systolic CHF (congestive heart failure) I50.22 ICD (implantable cardioverter-defibrillator) in place Z95.810 History of atrial fibrillation Z86.79 Hyponatremia E87.1 Hypokalemia E87.6 Hypomagnesemia E83.42 DVT prophylaxis Z29.9 Elevated serum creatinine R79.89 Cirrhosis K74.60 Time Spent (min) 90 Comment critical care time
--- NOTE | 2021-12-11 10:31 | Surgery Progress Note ---
Date of Service December 11, 2021 Assessment & Plan (1) Acute cholecystitis: Plan: We have seen the patient yesterday and recommended the patient be transferred to a tertiary center would likely proceed with a cholecystostomy tube percutaneously and drainage since the patient has a very very poor candidate for any surgery with significant cardiac history Dr. Chakraborty call me this morning that he was unable to get the patient transferred yesterday due to a bed situation and also for insurance reasons and he felt that the patient was deteriorating which were all indexes laboratory and clinically he is and I talked with Trent regarding this and I felt still the best option would be to transfer him to a tertiary center if at all possible for I had very little to offer him here not to have an interventional radiologist I talked with Dr. Chakraborty a few minutes ago he was able to arrange transfer to [facility] this morning we are awaiting transfer Admission and Anticipated Discharge Date Admission Date: December 08, 2021 Subjective Feels like is getting worse Physical Exam Physical Exam: Alert coherent abdominal pain for much the same As scleral icterus at this time The abdomen more fullness appreciated right upper quadrant towards the epigastric area somewhat tender to very deep palpation rest of the abdomen is negative for any tenderness Results & Data ([facility]) Vital Signs (Past 12 Hours) Vital Signs Temp Pulse Pulse Pulse Resp BP Pulse Ox 12/11/21 08:00 36.0 C L 80 20 115/60 97 12/11/21 07:27 77 12/11/21 03:29 36.8 C 79 18 113/69 96 12/11/21 00:51 108/82 12/10/21 23:00 36.7 C 82 20 119/81 98 O2 Del Method 12/11/21 08:00 Room Air 12/11/21 07:27 12/11/21 03:29 Room Air 12/11/21 00:51 12/10/21 23:00 Room Air Laboratory Results Noted with increased liver function tests high lactic acid increased creatinine PG Care Time/CCT Total # of Minutes Spent Total Time Spent with Patient: Total time spent is greater than 50% in coordination of care (as documented) at patient's floor/unit and/or counseling patient: Coding Level of Care Code 77724 Subseq Hosp Care Lvl 2 Diagnoses Acute cholecystitis K81.0
--- NOTE | 2021-12-11 11:57 | Communication Note ---
Date of Service: December 11, 2021 About 2100 or so last pm the patient states he developed worsening upper abd pain. Then, after MN overnight, he had vomiting/dry heaves. The upper abd pain persisted all night. He had some mild chest discomfort as well. Night physician ordered repeat labs and EKG - latter with NSR, LBBB. Labs ~0100 with worsening renal function and rising anion gap. This am I saw patient early. He confirmed his upper abd pain was 8/10. Vomiting had stopped; no further chest pain. I ordered repeat LFTs and BMP along with lactate about the time of my visit exam - gen - looks dehydrated and mildly uncomfortable neck - mild JVD mouth - MM dry heart - RRR, s1 s2 lungs - CTA b/l abd - very tender RUQ and high epigastric region, BS+, no peritoneal signs, mild ly distended ext - cool, pulses 1+ b/l, no edema psych - a/o x 3 Lactate returned very high at 9.8. Cr continues to rise - now >2. Anion gap acidosis present. LFTs - worse. Ordered bicarbonate drip at 75cc/hr, amp D50 for low glucose in the 60s, stopped the rocephin/flagyl and placed him on IV zosyn. Blood cx's sent. Transferred patient to ICU. I called [facility] and spoke with Dr Ryan Sexton, gen surg, and explained the clinical worsening overnight and my concern for worsening gall bladder disease (highly concerning for development of gangrenous gall bladder) along with worsening labs. Dr Sexton requested ICU bed. Patient informed of pending transfer to [facility]. Paperwork completed including helicopter form - will fly patient to [place] given his worsening s tatus and need for kelsey/urgent intervention of his cholecystitis. Care d/w Dr Daley, ICU attending. I called and spoke with pt's sister, Corby Martínez. She is aware of clinical worsening and need for immediate transfer to [facility] for surgical intervention. She is aware we will be flying Mr Ott to [place]. Questions answered. A/P: Acute cholecystitis with concerns for developing gangrenous cholecystitis; lactic acidosis; acute renal failure; worsening LFTs - all in the setting of advanced cardiac disease & cirrhosis. Tx to [place] by air kelsey when ICU bed there is ready. Total critical care time 90 minutes including complex care coordination and preparation for discharge Trent Chakraborty MD
--- NOTE | 2021-12-11 12:59 | Critical Care Consultation ---
Date of Consultation December 11, 2021 Assessment & Plan (1) Acute cholecystitis: Currently on Zosyn. Evaluated by general surgery who did not feel that he was a surgical candidate here due to lack of resources. They recommending transfer to a tertiary center for possible cholecystostomy tube. Transfer is pending. (2) Acute kidney injury: Creatinine going up secondary to sepsis related ATN. Continue fluid boluses and monitor urine output closely. (3) Chronic systolic CHF (congestive heart failure): Appears well compensated and slightly hypovolemic at this time. Currently saturating well on room air. Small to moderate effusions noted on chest x-ray likely chronic. (4) Cirrhosis: Mild transaminitis likely secondary to acute cholecystitis. Continue to monitor closely. History of Present Illness Reason for Consultation: 61-year-old male with a past medical history of cardiomyopathy presenting to the ICU due to lactic acidosis and concern for cholangitis. Attending Physician: Trent Chakraborty History of Present Illness 61-year-old male who presented 12/08/2021 due to right upper quadrant pain and VENTURA. MRCP performed yesterday revealed cirrhosis and mild gallbladder distention with trace pericholecystic fluid. Patient also has mild to moderate right pleural effusion. Patient is found to have increasing lactic acidosis this morning. He was not hypotensive. He denies any shortness of breath or chest pain. He does endorse some mild right upper quadrant tenderness. No significant fevers at present. Hemodynamically stable. He was evaluated by general surgery who did not feel that he was a surgical candidate here given his complexity with cirrhosis and cardiomyopathy. He is pending transfer to tertiary Care center for possible cholecystostomy tube versus cholecystectomy at a center with more resources. He is currently on Zosyn, bicarb drip and room air. Allergies Allergy/AdvReac Type Severity Reaction Status Date / Time codeine Allergy Severe chest Verified 12/08/21 22:08 pain,cold sweats Home Medications Medication Instructions Recorded Confirmed Type apixaban 5 mg tablet (Eliquis) 5 mg PO DAILY 12/08/21 12/08/21 History furosemide 40 mg tablet 80 mg PO QPM 12/08/21 12/08/21 History isosorbide mononitrate 60 mg 60 mg PO QAM 12/08/21 12/08/21 History tablet,extended release 24 hr metoprolol succinate 200 mg 200 mg PO DAILY 12/08/21 12/08/21 History tablet,extended release 24 hr sacubitril 49 mg-valsartan 51 mg 1 tab PO DAILY 12/08/21 12/08/21 History tablet (Entresto) spironolactone 25 mg tablet 25 mg PO DAILY 12/08/21 12/08/21 History Patient History Medical History (Updated 12/11/21 @ 12:57 by Darion Daley MD) Acute kidney injury Total bilirubin, elevated Upper abdominal pain Social History Smoking Status: Never smoker Hx Alcohol Use: Yes Hx Substance Use: No Preferred Language: [place]raini Communication Ability: Effective Pulverizer Required: No Beliefs That Will Affect Care: None marital status: / Current Living Situation: Alone Feels Safe at Home: Yes Safety Concerns: Feels Safe At This Time Assistive Devices: None Review of Systems Review of Systems: All systems reviewed & are unremarkable except as noted in HPI & below Physical Exam Physical Exam: Constitutional: Patient appears to be of their stated age. Patient is in no apparent distress. Patient is well-developed. Eyes: Pupils are equal round and reactive to light. Conjunctivae are normal. Anicteric sclera. Ears nose, mouth and throat: Deferred. Neck: Trachea is midline. Visual inspection is normal. Respiratory: Crackles bilaterally. No significant tachypnea. Cardiovascular: Regular rate and rhythm. No murmurs. No edema. Gastrointestinal: Mild tenderness to palpation in right upper quadrant. Decreased bowel sounds. Musculoskeletal: No cyanosis. Patient is able to move all extremities. Strength is 5 out of 5 in the upper and lower extremities. Skin: No rashes, warm dry and intact. Neurologic: No obvious focal neurological deficits seen. Psychiatric: Alert and oriented x3 with a euthymic affect. Results & Data Results & Data ([facility]) Vital Signs (Past 12 Hours) Vital Signs Temp Pulse Pulse Pulse Resp BP Pulse Ox 12/11/21 11:11 80 12/11/21 08:00 36.0 C L 80 20 115/60 97 12/11/21 07:27 77 12/11/21 03:29 36.8 C 79 18 113/69 96 O2 Del Method 12/11/21 11:11 12/11/21 08:00 Room Air 12/11/21 07:27 12/11/21 03:29 Room Air Coding Level of Care Code 11380 Inpt Consult Level 5 Diagnoses Acute cholecystitis K81.0 Acute kidney injury N17.9 Chronic systolic CHF (congestive heart failure) I50.22 Cirrhosis K74.60
[2021-12-11 13:35] VITALS: TEMP 98.2
--- NOTE | 2021-12-11 13:55 | Electrocardiogram Report ---
Test Reason : Blood Pressure : / mmHG Vent. Rate : 088 BPM Atrial Rate : 088 BPM P-R Int : 166 ms QRS Dur : 146 ms QT Int : 440 ms P-R-T Axes : 050 -36 129 degrees QTc Int : 532 ms Normal sinus rhythm Possible Left atrial enlargement Left axis deviation Left bundle branch block Abnormal ECG When compared with ECG of 08-DEC-2021 19:10, Premature ventricular complexes are no longer Present Premature atrial complexes are no longer Present Confirmed by Stepan De La Fuente ([id number]) on 12/11/2021 1:55:02 PM Referred By: REFERRED SELF Confirmed By:Stepan De La Fuente
[2021-12-11 14:02] VITALS: PULSE 79; O2SAT 97
[2021-12-11] MEDS ORDERED: PIPERACILLIN/TAZOBACTAM 3.375 GM in DEXTROSE 5% 100 ML IV SCH (16:00)
--- NOTE | 2021-12-12 06:28 | Billing Data ---
Date of Service December 11, 2021 Coding Level of Care Code Critical Care 1st 30-74 mins (25 - SIGNIFICANT, SEPARATELY IDENTIFIABLE )
--- NOTE | 2021-12-12 06:28 | Billing Data ---
Date of Service December 11, 2021 Coding Level of Care Code Critical Care ea addt'l 30 min
--- NOTE | 2021-12-21 07:24 | Coding Query ---
To promote full compliance with coding requirements relating to patient care, provider participation is requested in all cases of digital asset specialist uncertainty. Please assist us with the question(s) below: Coding Question(s): The diagnosis below was documented in the (digital asset specialist fill out source document ie H&P, progress notes, etc.) then subsequently fell off all further documentation. Please indicate if it is still a possible diagnosis or ruled out. Physician's Response(s): POSSIBLE CHF EXACERBATION INITIALLY - (H&P documents, "some concern for CHF exacerbation as below", and, "possible fluid overloaded due to CHF, and exacerbation", and the following day on the 12/09 Progress Note onward is documentation of chronic systolic CHF and appears compensated on exam today) ( ) Diagnosed and POA ( ) Diagnosed and not POA ( x ) Ruled out --- no CHF exacerbation during the hospital stay ( ) Other (please specify) MTDD
--- NOTE | 2021-12-28 07:39 | Coding Query ---
PRESENT ON ADMISSION QUERY To promote full compliance with coding requirements relating to pateint care, physician participation is requested in all cases of tank refinisher uncertainty. Please assist us with the question(s) below: Please place an X within the parenthesis (x). The following diagnosis(es) listed in this patient's medical record require physician assistance to determine if they were present on admission (POA) or not. Please advise for each diagnosis whether it was present on admission, not present on admission, or if it was clinically undetermined. 1. SEPSIS - ( documentation begins on the Discharge Summary, and then on the 12/11 Critical Care Consultation) ( ) Present On Admission ( ) Not Present On Admission ( ) Clinically Undetermined 2. SEVERE SEPSIS - (documentation begins on the Discharge Summary) ( ) Present On Admission ( x) Not Present On Admission ( ) Clinically Undetermined 3. ATN - (documentation begins on the Discharge Summary, and then on the Critical Care Consultation) ( ) Present On Admission ( x) Not Present On Admission ( ) Clinically Undetermined Thank you Chanelle Moore *Definition of the present on admission (POA)-Present on admission is defined as present at the time the order for inpatient admission occurs. Conditions that develop during an outpatient encounter prior to a written order for inpatient admission (including emergency department, observation, or outpatient surgery) are considered present on admission. MTDD
== END 2021-12-11 14:20 | disposition short-term general hospital (02) | DRG 444 ==
LOC: ED 17:34 → SUATTDRO 23:38 → 2E 23:38 → 1E 12-11 10:18
DX: T50.2X5A Adverse effect of carbonic-anhydrase inhibitors, benzothiadiazides and other diuretics, initial encounter; Z88.5 Allergy status to narcotic agent; A41.9 Sepsis, unspecified organism; I25.5 Ischemic cardiomyopathy; K80.12 Calculus of gallbladder with acute and chronic cholecystitis without obstruction; N17.0 Acute kidney failure with tubular necrosis; Z79.899 Other long term (current) drug therapy; Z95.810 Presence of automatic (implantable) cardiac defibrillator; I25.10 Atherosclerotic heart disease of native coronary artery without angina pectoris; K74.60 Unspecified cirrhosis of liver; I50.22 Chronic systolic (congestive) heart failure; E87.1 Hypo-osmolality and hyponatremia; I24.8 Other forms of acute ischemic heart disease; E87.6 Hypokalemia; I48.91 Unspecified atrial fibrillation; Z86.19 Personal history of other infectious and parasitic diseases; E87.2 Acidosis; N17.9 Acute kidney failure, unspecified; Z79.01 Long term (current) use of anticoagulants; Z87.891 Personal history of nicotine dependence; E83.42 Hypomagnesemia; K75.81 Nonalcoholic steatohepatitis (NASH); R65.20 Severe sepsis without septic shock; K82.A1 Gangrene of gallbladder in cholecystitis; Z95.1 Presence of aortocoronary bypass graft